=== PATIENT | female | born 1995 | race Caucasian/White ===

== ENCOUNTER 2023-06-11 08:55 | Outpatient (OUT) | payer BC, SELFPAY ==
--- NOTE | 2023-06-11 08:59 | US_ITS ---
[place] [id number] Patient Name: EDMUNDO MÁRQUEZ MRN: [id number] date: 1995 Sex: F Assigned Patient Location: US Current Patient Location: Accession/Order Number: [id number] Exam Date: 06/11/2023 09:00 Report Date: 06/11/2023 10:06 At the request of: LYNN MUHAMMAD Procedure: US OB transvaginal EXAMINATION: US OB transvaginal HISTORY: Amenorrhea N91.2 COMPARISON: No relevant comparison available. FINDINGS: Transvaginal images [place] intrauterine gestation Gestational sac: 2.58 cm, 7 weeks 2 days CRL: 1.18 cm, 7 weeks 3 days Yolk sac: 2.9 mm Heart rate: 163 beats minute Cervix: Closed, 4.1 cm The uterus is normal, anteverted The right ovary is normal measuring 2.7 x 2.3 x 1.3 cm Left ovary measures 5.0 x 4.1 x 4.7 cm. Areas of anechoic echogenicity measuring 3.6 cm likely corpus luteal cyst Clinical age: 7 weeks 5 days Clinical HIRAM: 01/23/2024 Ultrasound age: 7 weeks 3 days Ultrasound HIRAM: 01/25/2024 US/US OB transvaginal IMPRESSION: [place] intrauterine gestation measuring 7 weeks 3 days Electronically authenticated by: GAGAN KENT Date: 06/11/2023 10:06
--- OUTSIDE RECORDS SUMMARY | 2023-06-11 08:59 | XMS_ITS | CCD ---
Author Name Unknown Address [id number] [place] [address] Organization [facility] Care Team Providers Care Material Mover Name Role Phone PATRICIA PATEL Primary Care Unavailable NORMA ., DR MONTAÑO Admitting Unavailable NORMA ., DR MONTAÑO Attending Unavailable MISC, DR SHI Primary Care Unavailable KARASIK ., DR SERVIN Admitting Unavailabl e KARASIK ., DR SERVIN Consulting Unavailabl e KARASIK ., DR SERVIN Attending Unavailabl e MISC, DR SHI Primary Care Unavailable NORMA ., DR MONTAÑO Consulting Unavailable RADHA LOZANO Consulting Unavailable FLORO ., LAYA Consulting Unavailable NORMA ., DR MONTAÑO Procedure Practitioner Unavail able FLORO ., LAYA Attending Unavailable MISC, DR SHI Primary Care Unavailable FLORO ., LAYA Admitting Unavailable FLORO ., LAYA Attending Unavailable MISC, DR SHI Primary Care Unavailable FLORO ., LAYA Admitting Unavailable FLORO ., LAYA Attending Unavailable MISC, DR SHI Primary Care Unavailable FLORO ., LAYA Admitting Unavailable NEGAR CORONADO Attending Unavailable NEGAR CORONADO Attending Unavailable Morris TY, Mariza Anders Unavailable [phone] Sarah Laboy MD Primary Care Provider Negar Coronado NP Unavailable Medications Current Medications Medication Drug Class(es) Dates Sig (Normalized) Sig (Original) levothyroxine sodium 0.025 mg oral tablet (1 source) l-Thyroxine Start: 03-22-2023 End: 03-21-2024 take 1 tablet by mouth before mealtime levothyroxine (Synthroid) 25 MCG tablet Indications: Hypothyroidism (acquired) (CMS/HCC) Take 1 tablet (25 mcg) by mouth in the morning. Take before meals. 30 tablet 1 03/22/2023 03/21/2024 Active sertraline 100 mg oral tablet (1 source) Serotonin Reuptake Inhibitor Start: 04-19-2023 take 1 tablet by mouth in the morning sertraline (Zoloft) 100 MG tablet Indications: Anxiety Take 1 tablet (100 mg) by mouth in the morning. 90 tablet 1 04/19/2023 Active Problems Active Problems Problem Classification Problem Date Documented Da te Episodic/Chronic Anxiety disorders (1 source) Anxiety; Translations: [Anxiety disorder, unspecified] Onset: 03-21-2023 03-21-2023 Chronic Biliary tract disease (1 source) Obstruction of bile duct; Translations: [OBSTRUCTION OF BILE DUCT] Onset: 07-17-2022 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 and vulva (1 source) Second degree perineal laceration during delivery; Translations: [SECOND DEG PERINEAL LAC DUR DELIV] Onset: 07-17-2022 Episodic Other complications of ; puerperium affecting management of mother (1 source) Liver and biliary tract disorders in childbirth; Translations: [LIVER AND JESUS TRACT D/O CHILDBIRTH] Onset: 07-17-2022 Episodic Other complications of (2 sources) Liver and biliary tract disorders in , third trimester; Translations: [LIVER AND JESUS TRACT D/O PREG 3RD TRI] Onset: 07-02-2022 Episodic Other non-traumatic joint disorders (1 source) Pain in left knee; Translations: [Pain in left knee] Onset: 11-04-2021 Episodic Other non-traumatic joint disorders (1 source) Pain in right knee; Translations: [Pain in right knee] Onset: 11-04-2021 Episodic Other and delivery including normal (9 sources) Encounter for care and examination of lactating mother; Translations: [Encounter for routine follow-up] Onset: 07-11-2022 Episodic Residual codes; unclassified (1 source) 36 weeks gestation of ; Translations: [36 WEEKS GESTATION OF ] Onset: 07-17-2022 Episodic Thyroid disorders (2 sources) Acquired hypothyroidism; Translations: [Hypothyroidism, unspecified] Onset: 04-19-2023 05-12-2023 Chronic Past or Other Problems Problem Classification Problem Date Documented Da te Episodic/Chronic Mood disorders (1 source) Mood disorders Onset: 03-21-2023 03-21-2023 Results Test Name Value Interpretation Reference Range Facil ity CBC AUTO DIFFon 07-04-2022 BASO # 0.1 103/ul Normal 0.0-0.1 [facility] Comment on above: Performed By: #### C BC #### [facility] [address] [address] [address] Christie Ahmadi Basophils/100 WBC (Bld) 0.3 % Normal 0.2-2.0 [facility] Comment on above: Performed By: #### C BC #### [facility] [address] [address] [address] Christie Ahmadi EO # 0.0 103/ul Normal 0.0-0.7 [facility] Comment on above: Performed By: #### C BC #### [facility] [address] [place] [address] Dr. Christie Ahmadi Eosinophils/100 WBC (Bld) 0.1 % Critically low 0.9-7.0 [facility] Comment on above: Performed By: #### C BC #### [facility] [address] [address] [address] Christie Ahmadi Erythrocyte distribution width (RBC) [Ratio] 12.9 % Normal 11.0-15.0 [facility] Comment on above: Performed By: #### C BC #### [facility] [address] [place] [address] Dr. Christie Ahmadi Hematocrit (Bld) [Volume fraction] 29.9 % Critically low 36.0-48.0 [facility] Comment on above: Performed By: #### C BC #### [facility] [address] [address] [address] Christie Ahmadi Hemoglobin (Bld) [Mass/Vol] 10.0 g/dL Critically low 12.0-16.0 [facility] Comment on above: Performed By: #### C BC #### [facility] [address] [address] [address] Christie Ahmadi IG # 0.09 10e3/ul Critically high 0.00-0.03 [facility] Comment on above: Performed By: #### C BC #### [facility] [address] [place] [address] Dr. Chrsitie Ahmadi IG % 0.6 % Critically high 0.0-0.5 [facility] Comment on above: Performed By: #### C BC #### [facility] [address] [place] [address] Dr. Christie Ahmadi LYMPH # 1.5 103/ul Normal 1.2-3.8 [facility] Comment on above: Performed By: #### C BC #### [facility] [address] [place] [address] Dr. Christie Ahmadi Lymphocytes/100 WBC (Bld) 10.0 % Critically low 20.5-60.0 [facility] Comment on above: Performed By: #### C BC #### [facility] [address] [place] [address] Dr. Christie Ahmadi MANUAL DIFF REQ NO Normal [facility] Comment on above: Performed By: #### C BC #### [facility] [address] [place] [address] Dr. Christie Ahmadi MCH (RBC) [Entitic mass] 28.9 pg Normal 26.7-34.0 [facility] Comment on above: Performed By: #### C BC #### [facility] [address] [place] [address] Dr. Christie Ahmadi MCHC (RBC) [Mass/Vol] 33.4 g/dL Normal 29.9-35.2 [facility] Comment on above: Performed By: #### C BC #### [facility] [address] [place] [address] Dr. Christie Ahmadi MCV (RBC) [Entitic vol] 86.4 fL Normal 81.0-99.0 [facility] Comment on above: Performed By: #### C BC #### [facility] [address] [place] [address] Dr. Christie Ahmadi MONO # 1.2 103/ul Critically high 0.3-0.8 [facility] Comment on above: Performed By: #### C BC #### [facility] [address] [address] [address] Christie Ahmadi Monocytes/100 WBC (Bld) 8.0 % Normal 1.7-12.0 [facility] Comment on above: Performed By: #### C BC #### [facility] [address] [place] [address] Dr. Christie Ahmadi NEUT # 11.7 103/ul Critically high 1.4-6.[address] [facility] Comment on above: Performed By: #### C BC #### [facility] [address] [place] [address] Dr. Christie Ahmadi Neutrophils/100 WBC (Bld) 81.0 % Critically high 43.0-75.0 [facility] Comment on above: Performed By: #### C BC #### [facility] [address] [place] [address] Dr. Christie Ahmadi Platelet mean volume (Bld) [Entitic vol] 10.0 fL Normal 9.5-13.5 [facility] Comment on above: Performed By: #### C BC #### [facility] [address] [place] [address] Dr. Christie Ahmadi PLT 153 103/ul Normal 150-450 [facility] Comment on above: Performed By: #### C BC #### [facility] [address] [place] [address] Dr. Christie Ahmadi RBC 3.46 106/ul Critically low 4.20-5.40 [facility] Comment on above: Performed By: #### C BC #### [facility] [address] [place] [address] Dr. Christie Ahmadi WBC 14.4 103/ul Critically high 4.0-11.[address] [facility] Comment on above: Performed By: #### C BC #### [facility] [address] [place] [address] Dr. Christie Ahmadi CBC AUTO DIFFon 07-02-2022 BASO # 0.0 103/ul Normal 0.0-0.1 [facility] Comment on above: Performed By: #### C BC #### [facility] [address] [address] [address] Christie Ahmadi Basophils/100 WBC (Bld) 0.4 % Normal 0.2-2.0 [facility] Comment on above: Performed By: #### C BC #### [facility] [address] [place] [address] Dr. Christie Ahmadi EO # 0.0 103/ul Normal 0.0-0.7 [facility] Comment on above: Performed By: #### C BC #### [facility] [address] [place] [address] Dr. Christie Ahmadi Eosinophils/100 WBC (Bld) 0.5 % Critically low 0.9-7.0 [facility] Comment on above: Performed By: #### C BC #### [facility] [address] [place] [address] Dr. Christie Ahmadi Erythrocyte distribution width (RBC) [Ratio] 12.7 % Normal 11.0-15.0 [facility] Comment on above: Performed By: #### C BC #### [facility] [address] [place] [address] Dr. Christie Ahmadi Hematocrit (Bld) [Volume fraction] 32.2 % Critically low 36.0-48.0 [facility] Comment on above: Performed By: #### C BC #### [facility] [address] [place] [address] Dr. Christie Ahmadi Hemoglobin (Bld) [Mass/Vol] 11.2 g/dL Critically low 12.0-16.0 [facility] Comment on above: Performed By: #### C BC #### [facility] [address] [place] [address] Dr. Christie Ahmadi IG # 0.05 10e3/ul Critically high 0.00-0.03 [facility] Comment on above: Performed By: #### C BC #### [facility] [address] [place] [address] Dr. Christie Ahmadi IG % 0.6 % Critically high 0.0-0.5 [facility] Comment on above: Performed By: #### C BC #### [facility] [address] [address] [address] Christie Ahmadi LYMPH # 1.2 103/ul Normal 1.2-3.8 [facility] Comment on above: Performed By: #### C BC #### [facility] [address] [place] [address] Dr. Christie Ahmadi Lymphocytes/100 WBC (Bld) 16.0 % Critically low 20.5-60.0 [facility] Comment on above: Performed By: #### C BC #### [facility] [address] [place] [address] Dr. Christie Ahmadi MANUAL DIFF REQ NO Normal [facility] Comment on above: Performed By: #### C BC #### [facility] [address] [place] [address] Dr. Christie Ahmadi MCH (RBC) [Entitic mass] 29.8 pg Normal 26.7-34.0 [facility] Comment on above: Performed By: #### C BC #### [facility] [address] [place] [address] Dr. Christie Ahmadi MCHC (RBC) [Mass/Vol] 34.8 g/dL Normal 29.9-35.2 [facility] Comment on above: Performed By: #### C BC #### [facility] [address] [place] [address] Dr. Christie Ahmadi MCV (RBC) [Entitic vol] 85.6 fL Normal 81.0-99.0 [facility] Comment on above: Performed By: #### C BC #### [facility] [address] [place] [address] Dr. Christie Ahmadi MONO # 0.6 103/ul Normal 0.3-0.8 [facility] Comment on above: Performed By: #### C BC #### [facility] [address] [place] [address] Dr. Christie Ahmadi Monocytes/100 WBC (Bld) 7.7 % Normal 1.7-12.0 [facility] Comment on above: Performed By: #### C BC #### [facility] [address] [place] [address] Dr. Christie Ahmadi NEUT # 5.8 103/ul Normal 1.4-6.5 [facility] Comment on above: Performed By: #### C BC #### [facility] [address] [place] [address] Dr. Christie Ahmadi Neutrophils/100 WBC (Bld) 74.8 % Normal 43.0-75.0 [facility] Comment on above: Performed By: #### C BC #### [facility] [address] [place] [address] Dr. Christie Ahmadi Platelet mean volume (Bld) [Entitic vol] 10.2 fL Normal 9.5-13.5 [facility] Comment on above: Performed By: #### C BC #### [facility] [address] [place] [address] Dr. Christie Ahmadi PLT 208 103/ul Normal 150-450 [facility] Comment on above: Performed By: #### C BC #### [facility] [address] [place] [address] Dr. Christie Ahmadi RBC 3.76 106/ul Critically low 4.20-5.40 [facility] Comment on above: Performed By: #### C BC #### [facility] [address] [place] [address] Dr. Christie Ahmadi WBC 7.7 103/ul Normal 4.0-11.0 [facility] Comment on above: Performed By: #### C BC #### [facility] [address] [place] [address] Dr. Christie Ahmadi DRUG SCREEN RAPID (URINE)on 07-02-2022 AMP Negative Normal NEGATIVE [facility] Comment on above: Performed By: #### D RUGRPD #### [facility] [address] [place] [address] Dr. Christie Ahmadi BAR Negative Normal NEGATIVE [facility] Comment on above: Performed By: #### D RUGRPD #### [facility] [address] [place] [address] Dr. Christie Ahmadi BUP Negative Normal NEGATIVE [facility] Comment on above: Performed By: #### D RUGRPD #### [facility] [address] [place] [address] Dr. Christie Ahmadi BZO Negative Normal NEGATIVE [facility] Comment on above: Performed By: #### D RUGRPD #### [facility] [address] [place] [address] Dr. Christie Ahmadi GINA Negative Normal NEGATIVE [facility] Comment on above: Performed By: #### D RUGRPD #### [facility] [address] [place] [address] Dr. Christie Ahmadi CUT-OFFS SEE BELOW Normal [facility] Comment on above: Result Comment: AMP (Amphetamine): 500ng/mL, BAR (Barbituates): 200 ng/mL, BZO (Benzodiazepines): 150 ng/mL, BUP (Buprenorphine): 10 ng/mL, GINA (Cocaine): 150 ng/mL, mAMP (Methamphetamine): 500 ng/mL, MTD (Methadone): 200 ng/mL, OPI (Opiates): 100 ng/mL, OXY (Oxycodone): 100 ng/mL, PCP (Phencyclidine): 25 ng/mL, PPX (Propoxyphene): 300 ng/mL, THC (Cannabinoids): 50 ng/mL, TCA (Trycyclic Antidepressants): 300 ng/mL Performed By: #### D RUGRPD #### [facility] [address] [place] [address] Dr. Christie Ahmadi DRUG CUT HEADER DRUG CLASS TEST SYSTEM CUT-OFF CONCENTRATIONS ARE FOLLOWS: Normal [facility] Comment on above: Performed By: #### D RUGRPD #### [facility] [address] [place] [address] Dr. Christie Ahmadi mAMP Negative Normal NEGATIVE [facility] Comment on above: Performed By: #### D RUGRPD #### [facility] [address] [place] [address] Dr. Christie Ahmadi MTD Negative Normal NEGATIVE [facility] Comment on above: Performed By: #### D RUGRPD #### [facility] [address] [place] [address] Dr. Christie Ahmadi OPI Negative Normal NEGATIVE [facility] Comment on above: Performed By: #### D RUGRPD #### [facility] [address] [address] [address] Christie Ahmadi OXY Negative Normal NEGATIVE [facility] Comment on above: Performed By: #### D RUGRPD #### [facility] [address] [place], [place] [address] Dr. Christie Ahmadi PCP Negative Normal NEGATIVE [facility] Comment on above: Performed By: #### D RUGRPD #### [facility] [address] [address] [address] Christie Ahmadi PPX Negative Normal NEGATIVE [facility] Comment on above: Performed By: #### D RUGRPD #### [facility] [address] [address] [address] Christie Ahmadi TCA Negative Normal NEGATIVE [facility] Comment on above: Performed By: #### D RUGRPD #### [facility] [address] [address] [address] Christie Ahmadi THC Negative Normal NEGATIVE [facility] Comment on above: Performed By: #### D RUGRPD #### [facility] [address] [address] [address] Christie Ahmadi TYPE AND SCREENon 07-02-2022 TYPE AND SCREEN Negative Normal [facility] Comment on above: Performed By: #### T NS #### [facility] [address] [address] [address] Christie Ahmadi XR KNEE LEFT (3 VIEWS)on XR KNEE LEFT (3 VIEWS) X-rays taken in clinic today and preliminarily reviewed by me 11/04/21: AP bilateral knees standing, bilateral sunrise view and lateral views of both knees Demonstrate normal anatomic alignment. No evidence of patellofemoral malalignment, lateral patellar tilt or patellar dislocation. No evidence of acute fracture, significant degenerative changes or other acute osseous abnormality. Patient with small suprapatellar joint effusion left knee none on the right. Interpreted by: ALINA Guevara MD Signed by: Nolan Stanton MD 01/11/22 Final result Normal [facility] XR KNEE RIGHT (1-2 VIEWS)on 01-11-2022 XR KNEE RIGHT (1-2 VIEWS) X-rays taken in clinic today and preliminarily reviewed by me 11/04/21: AP bilateral knees standing, bilateral sunrise view and lateral views of both knees Demonstrate normal anatomic alignment. No evidence of patellofemoral malalignment, lateral patellar tilt or patellar dislocation. No evidence of acute fracture, significant degenerative changes or other acute osseous abnormality. Patient with small suprapatellar joint effusion left knee none on the right. Interpreted by: ALINA Guevara MD Signed by: Nolan Stanton MD 01/11/22 Final result Normal [facility] US OB 1ST Trimesteron 2021 US OB 1ST Trimester FINDINGS: A single intrauterine gestational sac is present. No subchorionic hemorrhage. A single pole is present. Normal heart rate at 147 beats per minute. Yolk sac also is seen. Current sonographic age is 7 weeks and 6 days based on the crown-rump length measurement of 1.1 cm. Based on this age, current estimated date of delivery is July 20, 2022. No pelvic fluid or adnexal mass present. IMPRESSION: Findings consistent with a live intrauterine gestation, current sonographic age of 7 weeks and6 days resulting in an estimated date of delivery of July 20, 2022. Report reported and signed by Liang Hill on 12/07/2021 1519 Normal [facility] [employer] Encounters Encounter Date Encounter Type Care Provider Facility Start: 05-12-2023 Refill Negar Castanon P Work Phone: [facility] Comment on above: Hypothyroidism (acqu ired) ([facility]) Start: 04-19-2023 End: 04-19-2023 ambulatory NEGAR CORONADO Not Available Start: 03-21-2023 End: 03-21-2023 ambulatory NEGAR CORONADO Not Available Start: 08-02-2022 End: 08-02-2022 ambulatory LAYA AQUINO . Facility:[facility] Start: 07-25-[address] DANYEL GREEN . Facili ty:[facility] Start: 07-18-2022 End: 08-01-2022 ambulatory LAYA AQUINO . Facility:[facility] Start: 07-11-2022 End: 07-11-2022 ambulatory LAYA AQUINO . Facility:[facility] Start: 07-02-2022 End: 07-05-2022 Evaluation and management of inpatient DR MALATHI RENE . Facility:[facility] Start: 11-04-2021 End: 11-04-2021 ambulatory PATRICIA PATEL [facility] Procedures Date Procedure Procedure Detail Performing Clinician Start: 07-03-2022 Delivery of Products of Conception, External Approach DR DANYEL GREEN . Start: 07-03-2022 Drainage of Amniotic Fluid, Therapeutic from Products of Conception, Via Natural or Artificial Opening DR DANYEL GREEN . Start: 07-03-2022 Repair Perineum Musc le, Open Approach DR DANYEL GREEN . Start: 07-02-2022 Introduction of Horm one into Female Reproductive, Via Natural or Artificial Opening DR DANYEL GREEN . Start: 07-02-2022 Introduction of Othe r Hormone into Peripheral Vein, Percutaneous Approach DR DANYEL GREEN . Plan of Treatment Date Care Activity Detail Author Start: 08-21-2023 End: 08-21-2023 Patient encounter procedure 08/21/2023 9:00 AM EDT Office Visit [facility] [address] [place] [address] Bonnie Aquino, CN [address] [place] [address] [facility] Start: 12-01-2022 Influenza vaccination Influenza Vacc ine (#1) [facility] Immunizations Immunization Date Immunization Notes Care Provider Fa cili 02-10-2021 influenza virus vacc ine, unspecified formulation Negar Coronado NP Work Phone: [facility] Payers Date Payer Category Payer Unknown BCBS BCBS xxxxxx [id number] 2022-Present [phone] [address] [place] [address] [id number] 1997 Unknown [id number] 1997 Unknown [id number] 1997 Unknown [id number] 1997 Unknown [id number] 1997 Unknown [id number] 1997 Unknown [id number] 1997 Unknown [id number] 1997 Unknown [id number] 1959 Unknown [id number] Social History Date Type Detail Facility Start: 03-21-2023 Tobacco smoking status TNIS Never sm oked tobacco [facility] Start: 03-21-2023 Tobacco use and exposure Smoke less tobacco non-user [facility] Start: 04-19-2023 Alcohol intake Ex-drinker (finding) [facility] Start: 03-20-2023 End: 03-21-2023 [facility] of [facility] Start: 03-20-2023 End: 03-21-2023 Humiliation, Afraid, Rape, and Kick questionnaire [HARK] [facility] Within the last year , have you been afraid of your partner or ex-partner? No [facility] How often do you att end meetings of the clubs or organizations you belong to? Patient refused [facility] Are you now , , , , never or living with a partner? [facility] How often to you hav e a drink containing alcohol? Monthly or less [facility] How many standard dr inks containing alcohol do you have on a typical day? 1 or 2 [facility] How often do you hav e 6 or more drinks on 1 occasion? Never [facility] How hard is it for y ou to pay for the very basics like food, housing, medical care, and heating Somewhat hard [facility] Do you feel stress - tense, restless, nervous, or anxious, or unable to sleep at night because your mind is troubled all the time - these days [OSQ] Rather much [facility] (I/We) worried wheth er (my/our) food would run out before (I/we) got money to buy more. Never true [facility] Start: 03-31-2023 Alcohol Comment caffeine 1-2 cups/da y [facility] Start: 1995 Sex Assigned At Not on file [facility] Evaluation note Note Date & Type Note Facility Evaluation note Diagnosis Hypothyroidism (acquired) (CMS/HCC) Unspecified hypothyroidism documented in this encounter [facility] Summary Purpose Family History No Family History Records FoundNo Family History Records FoundNo Family History Records FoundNo Family History Records Found Advance Directives No Advanced Directives Records FoundNo Advanced Directives Records FoundNo Advanced Directives Records FoundNo Advanced Directives Records Found Additional Source Comments INFORMATION SOURCE (unrecogn ized section and content) DATE CREATED AUTHOR 12/08/2021 [facility] dical Specialist DATE CREATED AUTHOR AUTHOR'S ORGANIZ ATION 01/11/2022 [facility] DATE CREATED AUTHOR AUTHOR'S ORGANIZ ATION 08/03/2022 [facility] DATE CREATED AUTHOR AUTHOR'S ORGANIZ ATION 04/20/2023 [facility] dical Specialists EPIC Reason for Visit (unrecogniz ed section and content) Reason Comments Med Refill Care Teams (unrecognized sec tion and content) Material Mover Relationship Specialty Start Date End Date Mariza Caceres NP [address] [place], [place] [id number] [address] PCP - [employer] 10/31/21 Sarah Laboy MD [address] [place], [place] [id number] PCP - General Family Medicine 03/21/23 Negar Coronado NP [address] [place] [address] Nurse Practitioner Family Medicine 03/21/23 FOR RECORDS PERTAINING TO PATIENTS WHO ARE OR HAVE BEEN ENROLLED IN A CHEMICAL DEPENDENCY/SUBSTANCEABUSE PROGRAM, SOME INFORMATION MAY BE OMITTED. This clinical summary was aggregated from multiple sources. Caution should be exercised in using it in the provision of clinical care. This summary normalizes information from multiple sources, and as a consequence, information in this document may materially change the coding, format and clinical context of patient data. In addition, data may be omitted in some cases. CLINICAL DECISIONS SHOULD BE BASED ON THE PRIMARY CLINICAL RECORDS. [facility]. provides no warranty or guarantee of the accuracy or completeness of information in this document.
== END 2023-06-11 08:56 | disposition home or self-care (01) ==
LOC: US 08:55
PROVIDERS: Visit Provider Midwife
DX: N91.2 Amenorrhea, unspecified (principal)
CPT/HCPCS: 76817

== ENCOUNTER 2023-12-11 06:46 | Outpatient (OUT) | payer SELFPAY ==
--- OUTSIDE RECORDS SUMMARY | 2023-12-11 06:48 | XMS_ITS | CCD ---
Author Organization [facility] Care Team Providers Care Imaging Account Manager Name Role Phone PATRICIA PATEL Primary Care Unavailable NORMA ., DR MONTAÑO Admitting Unavailable NORMA ., DR MONTAÑO Attending Unavailable MISC, DR SHI Primary Care Unavailable KARASIK ., DR SERVIN Admitting Unavailabl e KARASIK ., DR SERVIN Consulting Unavailabl e KARASIK ., DR SERVIN Attending Unavailabl e MISC, DR SHI Primary Care Unavailable NORMA ., DR MONTAÑO Consulting Unavailable DAVID LOZANO Consulting Unavailable FLORO ., LAYA Consulting [...] Care Unavailable FLORO ., LAYA Admitting Unavailable [employer] EXTRUSION SUPERVISOR, Mariza Anders Unavailable Benoit YOUNG, Sarah Parks Primary Care Provider [phone] Negar Coronado NP Unavailable SALOO LYNN L Referring Unavailable FLORO, LYNN L Attending Unavailable FLORO, LYNN L Referring Unavailable FLORO, LYNN Diamond Attending Unavailable NEGAR CORONADO Attending Unavailable FLORO, LYNN Lobo Attending Unavailable FLORO, LYNN L Referring Unavailable FLORO, LYNN L Attending Unavailable FLORO, LYNN L Attending Unavailable FLORO, LYNN L Attending Unavailable FLORO, LYNN L Referring Unavailable FLORO, LYNN L Attending Unavailable FLORO, LYNN L Attending Unavailable NEGAR CORONADO Attending Unavailable Medications Current Medications Medication Drug Class(es) [...] Results Test Name Value Interpretation Reference Range Facility US BIOPHYSICAL PROFILE WO NON STRESS TESTINGon 11-30-2023 US BIOPHYSICAL PROFILE WO NON STRESS TESTING TITLE OF EXAM: OB Ultrasound: REASON FOR EXAM: BPP, hypothyroidism. TECHNIQUE: Grayscale imaging is performed. Measurements: heart rate: 129 bpm OWEN: 12.2 cm (8.5-24.3) Biophysical Profile: 11/07 Breathin Tone: Movement: 2 AFV: 2 Cervix Length: 5.1 cm HIRAM: 01/23/2024 CLINICAL SUMMARY: BPP: 11/07 A single intrauterine is noted in cephalic presentation. heart is observed with a heart rate of 129 BPM. motion and organs seen: breathing movements were observed. tone is noted. body and limb movements are observed. Placenta is located anteriorly. Placenta is Grade I/III Amniotic fluid volume is normal. Dictated and transcribed 11/30/23dpd This report has been electronically signed and approved by the interpreting radiologist. Electronically Signed Jalil Kohli M.D. 2023-11-30 17:04:27 Normal Not Available US OB FOLLOW UP TRANSABDOMIN AL APPROACHon 11-14-2023 US OB FOLLOW UP TRANSABDOMINAL APPROACH TITLE OF EXAM: OB Ultrasound: REASON FOR EXAM: Growth TECHNIQUE: Grayscale and color Doppler imaging is performed. Measurements: heart rate: 141 bpm OWEN: 14.2 cm (9.0-23.4) BPD: 7.6 cm HC: 27.6 cm AC: 26.2 cm FL: 5.7 cm GA for sonogram: 29.9 wk (28.1-31.7) Cervix length: 4.8 cm HIRAM: 01/23/2024 Weight Estimate: Weight: 1539 gm / 3 lbs, 6 oz (0797-9864 gm) [place] Normal: 1559 gm (7051-4538 gm) [place]lock Wt%: 46% for 30.0 wks CLINICAL SUMMARY: A single intrauterine is noted in cephalic presentation. heart is observed with a heart rate of 141 bpm. motion and organs seen: body and limb movements are observed. Placenta is located anteriorly. Placenta is Grade I/III Amniotic fluid volume is normal. Dictated and transcribed 11/14/23/dpd This report has been electronically signed and approved by the interpreting radiologist. Electronically Signed David Campbell D.O. 2023-11-14 11:05:46 Normal Not Available US OB 14+ WEEKS ANATOMY SCAN on 09-06-2023 US OB 14+ WEEKS ANATOMY SCAN FINDINGS: A single, live intrauterine is present with normal cardiac rate of 129 beats per minute. Normal activity and amniotic fluid volume. Amniotic fluid index is 14 cm. Morphology is grossly normal. The cervix is long and closed, 5.2 cm. The placenta is anterior, not associated with the cervical os. The current sonographic age is 20 weeks and 0 days, based on the following measurements: BPD 4.6 cm (19 weeks, 6 days) Head Circumference 17.5 cm (20 weeks, 0 days) Abdominal Circumference 15.1 cm (20 weeks, 2 days) Femur Length 3.2 cm (20 weeks, 0 days) Presentation Variable Placenta Anterior Weight (g) by Percentile 43.3 % * These measurements result in an estimated date of delivery of January 24, 2024. The current estimated weight is 333 grams (0 pounds, 12 ounces). IMPRESSION: Single, live intrauterine , current sonographic age of 20 weeks and 0 days, with an estimated date of delivery of January 24, 2024. * Estimated Weight (g) by Percentile is based upon an accurate estimated age based on last menstrual period. TRANSCRIBED BY: ELECTRONICALLY SIGNED BY: Liang Hill MD Normal Not Available CBC AUTO DIFFon 07-04-2022 BASO # 0.1 103/ul Normal 0.0-0.1 [facility] Comment on above: Performed By: #### C BC #### [facility] [address] [address] [address] Christie Ahmadi Basophils/100 WBC (Bld) 0.3 % Normal 0.2-2.0 [facility] Comment on above: Performed By: #### C BC #### [facility] [address] [address] [address] Christie Ahmadi EO # 0.0 103/ul Normal 0.0-0.7 [facility] Comment on above: Performed By: #### C BC #### [facility] [address] [address] [address] Christie Ahmadi Eosinophils/100 WBC (Bld) 0.1 % Critically low 0.9-7.0 [facility] Comment on above: Performed By: #### C BC #### [facility] [address] [place] [address] Dr. Christie Ahmadi Erythrocyte distribution width (RBC) [Ratio] 12.9 % Normal 11.0-15.0 [facility] Comment on above: Performed By: #### C BC #### [facility] [address] [place] [address] Dr. Christie Ahmadi Hematocrit (Bld) [Volume fraction] 29.9 % Critically low 36.0-48.0 [facility] Comment on above: Performed By: #### C BC #### [facility] [address] [place] [address] Dr. Christie Ahmadi Hemoglobin (Bld) [Mass/Vol] 10.0 g/dL Critically low 12.0-16.0 [facility] Comment on above: Performed By: #### C BC #### [facility] [address] [place] [address] Dr. Christie Ahmadi IG # 0.09 10e3/ul Critically high 0.00-0.03 [facility] Comment on above: Performed By: #### C BC #### [facility] [address] [place] [address] Dr. Christie Ahmadi IG % 0.6 % Critically high 0.0-0.5 [facility] Comment on above: Performed By: #### C BC #### [facility] [address] [place] [address] Dr. Christie Ahmadi LYMPH # 1.5 103/ul Normal 1.2-3.8 [facility] Comment on above: Performed By: #### C BC #### [facility] [address] [place] [address] Dr. Christie Ahmadi Lymphocytes/100 WBC (Bld) 10.0 % Critically low 20.5-60.0 [facility] Comment on above: Performed By: #### C BC #### [facility] [address] [place] [address] Dr. Christie Ahmadi MANUAL DIFF REQ NO Normal [facility] Comment on above: Performed By: #### C BC #### [facility] [address] [place] [address] Dr. Christie Ahmadi MCH (RBC) [Entitic mass] 28.9 pg Normal 26.7-34.0 [facility] Comment on above: Performed By: #### C BC #### [facility] [address] [place] [address] Dr. Christie Ahmadi MCHC (RBC) [Mass/Vol] 33.4 g/dL Normal 29.9-35.2 [facility] Comment on above: Performed By: #### C BC #### [facility] [address] [place] [address] Dr. Christie Ahmadi MCV (RBC) [Entitic vol] 86.4 fL Normal 81.0-99.0 [facility] Comment on above: Performed By: #### C BC #### [facility] [address] [place] [address] Dr. Christie Ahmadi MONO # 1.2 103/ul Critically high 0.3-0.8 [facility] Comment on above: Performed By: #### C BC #### [facility] [address] [place] [address] Dr. Christie Ahmadi Monocytes/100 WBC (Bld) 8.0 % Normal 1.7-12.0 [facility] Comment on above: Performed By: #### C BC #### [facility] [address] [place] [address] Dr. Christie Ahmadi NEUT # 11.7 103/ul Critically high 1.4-6.5 [facility] Comment on above: Performed By: #### C BC #### [facility] [address] [address] [address] Christie Ahmadi Neutrophils/100 WBC (Bld) 81.0 % Critically high 43.0-75.0 [facility] Comment on above: Performed By: #### C BC #### [facility] [address] [address] [address] Christie Ahmadi Platelet mean volume (Bld) [Entitic vol] 10.0 fL Normal 9.5-13.5 [facility] Comment on above: Performed By: #### C BC #### [facility] [address] [place] [address] Dr. Christie Ahmadi PLT 153 103/ul Normal 150-450 [facility] Comment on above: Performed By: #### C BC #### [facility] [address] [place] [address] Dr. Christie Ahmadi RBC 3.46 106/ul Critically low 4.20-5.40 [facility] Comment on above: Performed By: #### C BC #### [facility] [address] [place] [address] Dr. Christie Ahmadi WBC 14.4 103/ul Critically high 4.0-11.0 [facility] Comment on above: Performed By: #### C BC #### [facility] [address] [place] [address] Dr. Christie Ahmadi CBC AUTO DIFFon 07-02-2022 BASO # 0.0 103/ul Normal 0.0-0.1 [facility] Comment on above: Performed By: #### C BC #### [facility] [address] [place] [address] Dr. Christie Ahmadi Basophils/100 WBC (Bld) 0.4 % Normal 0.2-2.0 [facility] Comment on above: Performed By: #### C BC #### [facility] [address] [place] [address] Dr. Christie Ahmadi EO # 0.0 103/ul Normal 0.0-0.7 [facility] Comment on above: Performed By: #### C BC #### [facility] [address] [address] [address] Christie Ahmadi Eosinophils/100 WBC (Bld) 0.5 % Critically low 0.9-7.0 [facility] Comment on above: Performed By: #### C BC #### [facility] [address] [place] [address] Dr. Christie Ahmadi Erythrocyte distribution width (RBC) [Ratio] 12.7 % Normal 11.0-15.0 [facility] Comment on above: Performed By: #### C BC #### [facility] [address] [place] [address] Dr. Christie Ahmadi Hematocrit (Bld) [Volume fraction] 32.2 % Critically low 36.0-48.0 [facility] Comment on above: Performed By: #### C BC #### [facility] [address] [place] [address] Dr. Chrisite Ahmadi Hemoglobin (Bld) [Mass/Vol] 11.2 g/dL Critically low 12.0-16.0 [facility] Comment on above: Performed By: #### C BC #### [facility] [address] [place] [address] Dr. Christie Ahmadi IG # 0.05 10e3/ul Critically high 0.00-0.03 [facility] Comment on above: Performed By: #### C BC #### [facility] [address] [place] [address] Dr. Christie Ahmadi IG % 0.6 % Critically high 0.0-0.5 [facility] Comment on above: Performed By: #### C BC #### [facility] [address] [place] [address] Dr. Christie Ahmadi LYMPH # 1.2 103/ul Normal 1.2-3.8 [facility] Comment on above: Performed By: #### C BC #### [facility] [address] [place] [address] Dr. Christie Ahmadi Lymphocytes/100 WBC (Bld) 16.0 % Critically low 20.5-60.0 [facility] Comment on above: Performed By: #### C BC #### [facility] [address] [place] [address] Dr. Christie Ahmadi MANUAL DIFF REQ NO Normal [facility] Comment on above: Performed By: #### C BC #### [facility] [address] [place] [address] Dr. Christie Ahmadi MCH (RBC) [Entitic mass] 29.8 pg Normal 26.7-34.0 [facility] Comment on above: Performed By: #### C BC #### [facility] [address] [place] [address] Dr. Christie Ahmadi MCHC (RBC) [Mass/Vol] 34.8 g/dL Normal 29.9-35.2 [facility] Comment on above: Performed By: #### C BC #### [facility] [address] [place] [address] Dr. Christie Ahmadi MCV (RBC) [Entitic vol] 85.6 fL Normal 81.0-99.0 [facility] Comment on above: Performed By: #### C BC #### [facility] [address] [place] [address] Dr. Christie Ahmadi MONO # 0.6 103/ul Normal 0.3-0.8 [facility] Comment on above: Performed By: #### C BC #### [facility] [address] [place] [address] Dr. Christie Ahmadi Monocytes/100 WBC (Bld) 7.7 % Normal 1.7-12.0 [facility] Comment on above: Performed By: #### C BC #### [facility] [address] [place] [address] Dr. Christie Ahmadi NEUT # 5.8 103/ul Normal 1.4-6.5 [facility] Comment on above: Performed By: #### C BC #### [facility] [address] [place] [address] Dr. Christie Ahmadi Neutrophils/100 WBC (Bld) 74.8 % Normal 43.0-75.0 [facility] Comment on above: Performed By: #### C BC #### [facility] [address] [address] [address] Christie Ahmadi Platelet mean volume (Bld) [Entitic vol] 10.2 fL Normal 9.5-13.5 [facility] Comment on above: Performed By: #### C BC #### [facility] [address] [address] [address] Christie Ahmadi PLT 208 103/ul Normal 150-450 [facility] Comment on above: Performed By: #### C BC #### [facility] [address] [address] [address] Christie Ahmadi RBC 3.76 106/ul Critically low 4.20-5.40 [facility] Comment on above: Performed By: #### C BC #### [facility] [address] [place] [address] Dr. Christie Ahmadi WBC 7.7 103/ul Normal 4.0-11.0 [facility] Comment on above: Performed By: #### C BC #### [facility] [address] [place] [address] Dr. Christie Ahmadi DRUG SCREEN RAPID (URINE)on 07-02-2022 AMP Negative Normal NEGATIVE [facility] Comment on above: Performed By: #### D RUGRPD #### [facility] [address] [place] [address] Dr. Christie Ahmadi BAR Negative Normal NEGATIVE [facility] Comment on above: Performed By: #### D RUGRPD #### [facility] [address] [place] [address] Dr. Christie Ahmadi BUP Negative Normal NEGATIVE [facility] Comment on above: Performed By: #### D RUGRPD #### [facility] [address] [place] [address] Dr. Christie Ahmadi BZO Negative Normal NEGATIVE [facility] Comment on above: Performed By: #### D RUGRPD #### [facility] [address] [place] [address] Dr. Christie Ahmadi GINA Negative Normal NEGATIVE [facility] Comment on above: Performed By: #### D RUGRPD #### [facility] [address] [place] [address] Dr. Christie Ahmadi CUT-OFFS SEE BELOW Normal [facility] Comment on above: Result Comment: AMP [...] ng/mL Performed By: #### D RUGRPD #### [facility] [address] [place] [address] Dr. Christie Ahmadi DRUG CUT HEADER DRUG CLASS TEST SYSTEM CUT-OFF CONCENTRATIONS ARE FOLLOWS: Normal [facility] Comment on above: Performed By: #### D RUGRPD #### [facility] [address] [place] [address] Dr. Christie Ahmadi mAMP Negative Normal NEGATIVE [facility] Comment on above: Performed By: #### D RUGRPD #### [facility] [address] [place] [address] Dr. Christie Ahmadi MTD Negative Normal NEGATIVE [facility] Comment on above: Performed By: #### D RUGRPD #### [facility] [address] [address] [address] Christie Ahmadi OPI Negative Normal NEGATIVE [facility] Comment on above: Performed By: #### D RUGRPD #### [facility] [address] [address] [address] Christie Ahmadi OXY Negative Normal NEGATIVE [facility] Comment on above: Performed By: #### D RUGRPD #### [facility] [address] [place] [address] Dr. Christie Ahmadi PCP Negative Normal NEGATIVE [facility] Comment on above: Performed By: #### D RUGRPD #### [facility] [address] [place], [place] [address] Dr. Christie Ahmadi PPX Negative Normal NEGATIVE [facility] Comment on above: Performed By: #### D RUGRPD #### [facility] [address] [place], [place] [address] Dr. Christie Ahmadi TCA Negative Normal NEGATIVE [facility] Comment on above: Performed By: #### D RUGRPD #### [facility] [id number] Christie Ahmadi THC Negative Normal NEGATIVE [facility] Comment on above: Performed By: #### D RUGRPD #### [facility] [address] [address] [address] Christie Ahmadi TYPE AND SCREENon 07-02-2022 TYPE AND SCREEN Negative Normal [facility] Comment on above: Performed By: #### T NS #### [facility] [address] [address] [address] Christie Ahmadi XR KNEE LEFT (3 [...] Nolan Stanton MD 01/11/22 Final result Normal [facility] XR KNEE RIGHT (1-2 VIEWS)on 01-11-2022 XR [...] Nolan Stanton MD 01/11/22 Final result Normal [facility] US OB 1ST Trimesteron 2021 US OB [...] by Liang Hill on 12/07/2021 1519 Normal [facility] Early Childhood Associate Encounters Encounter Date Encounter Type Care Provider Facility Start: 12-07-2023 ambulatory LYNN L FLORO Not Patricia ilable Start: 12-04-2023 End: 12-04-2023 ambulatory LYNN L FLORO Not Available Start: 11-30-2023 End: 11-30-2023 ambulatory LYNN L FLORO Not Available Start: 11-27-2023 End: 11-27-2023 ambulatory LYNN L FLORO Not Available Start: 11-14-2023 End: 11-14-2023 ambulatory LYNN L FLORO Not Available Start: 11-01-2023 End: 11-01-2023 ambulatory LYNN L FLORO Not Available Start: 10-10-2023 End: 10-10-2023 ambulatory LYNN L FLORO Not Available Start: 09-06-2023 End: 09-06-2023 ambulatory LYNN L FLORO Not Available Start: 08-08-2023 End: 08-08-2023 ambulatory LYNN L FLORO Not Available Start: 07-11-2023 End: 07-11-2023 ambulatory LYNN L FLORO Not Available Start: 06-14-2023 End: 06-14-2023 ambulatory LYNN L FLORO Not Available Start: 05-12-2023 Lyle Ahumada Work Phone: [facility] Comment on above: Hypothyroidism (acqu ired) ([facility]) Start: 04-19-2023 End: 04-19-2023 ambulatory NEGAR Abigail CORONADO Not Available Start: 03-21-2023 End: 03-21-2023 ambulatory NEGAR Abigail CORONADO Not Available Start: 08-02-2022 End: 08-02-2022 ambulatory LAYA AQUINO . Facility:[facility] Start: 07-25-[address] DANYEL GREEN . Facili ty:[facility] Start: 07-18-2022 End: 08-01-2022 ambulatory LAYA SABINA . Facility:[facility] Start: 07-11-2022 End: 07-11-2022 ambulatory LAYA SABINA . Facility:[facility] Start: 07-02-2022 End: 07-05-2022 Evaluation and management of inpatient DR MALATHI RENE . Facility:[facility] Start: 11-04-2021 End: 11-04-2021 ambulatory PATRICIA PATEL [facility] Procedures Date Procedure Procedure Detail Performing Clinician [...] EDT Office Visit [facility] [address] [place] [address] Lynn Aquino CNM [address] [place] [address] [facility] Start: 12-01-2022 Influenza vaccination Influenza Vacc ine (#1) [facility] Immunizations Immunization Date Immunization Notes Care Provider Fa arline 02-10-2021 influenza virus vacc ine, unspecified formulation Negar Coronado EXTRUSION SUPERVISOR Work Phone: [facility] Payers Date Payer Category Payer Unknown [id number] 2023 Unknown [id number] 2022 Unknown BCBS BCBS xxxxxx [id number] 2022-Present [phone] [address] [place] [address] [id number] 1997 Unknown [id number] [id number]5 1997 Unknown [id number] 2.16.840.1.442504.3.579.2.593 1997 Unknown [id number] 2.16.840.1.022223.3.579.2.593 1997 Unknown [id number] 2.16.840.1.564897.3.579.2.593 1997 Unknown [id number] 2.16.840.1.040860.3.579.2.593 1997 Unknown [id number] 2.16.840.1.502429.3.579.2.593 1997 Unknown [id number] 2.16.840.1.394671.3.579.2.1259 1997 Unknown [id number] 2.16.840.1.895589.3.579.2.1259 1997 Unknown [id number] 2.16.840.1.408581.3.579.2.1259 1997 Unknown [id number] 2.16.840.1.168806.3.579.2.1259 1997 Unknown [id number] 2.16.840.1.820918.3.579.2.1258 1997 Unknown [id number] 2.16.840.1.201694.3.579.2.1258 1997 Unknown [id number] 2.16.840.1.374603.3.579.2.1258 1997 Unknown [id number] 2.16.840.1.027916.3.579.2.1258 1997 Unknown [id number] 2.16.840.1.936848.3.579.2.1258 1997 Unknown [id number] 2.16.840.1.486231.3.579.2.1258 1997 Unknown [id number] 2.16.840.1.870744.3.579.2.1258 1997 Unknown [id number] 2.16.840.1.547766.3.579.2.1258 1997 Unknown [id number] 2.16.840.1.649702.3.579.2.1258 1997 Unknown [id number] 2.16.840.1.192341.3.579.2.9 1959 Unknown [id number] Social History Date Type Detail Facility Start: 03-21-2023 Tobacco smoking status WVIS Never sm oked tobacco [facility] Start: [...] [OSQ] Rather much [facility] (I/We) worried [facility] (my/our) food would run out before [...] section and content) DATE CREATED AUTHOR 12/08/2021 [facility] dical Specialist DATE CREATED AUTHOR AUTHOR'S ORGANIZ ATION 01/11/2022 [facility] DATE CREATED AUTHOR AUTHOR'S ORGANIZ ATION 08/03/2022 [facility] DATE CREATED AUTHOR AUTHOR'S ORGANIZ ATION 12/08/2023 [facility] dical Specialists EPIC Reason for Visit (unrecogniz ed section and content) Reason Comments Med Refill Care Teams (unrecognized sec tion and content) Imaging Account Manager Relationship Specialty Start Date End Date Mariza Caceres NP [address] [place] [address] PCP - [place] [employer] 10/31/21 Sarah Laboy MD [address] [place], [place] [id number] PCP - General Family Medicine 03/21/23 Negar Coronado NP [address] [place] [address] Nurse Practitioner Family Medicine 03/21/23 FOR RECORDS [...] BE BASED ON THE PRIMARY CLINICAL RECORDS. [facility] [employer] [facility]. provides no warranty or guarantee of the accuracy or completeness of information in this document.
[2023-12-11 08:07] VITALS: BP 132/84; PULSE 107
== END 2023-12-11 08:44 | disposition home or self-care (01) ==
LOC: FBCO 06:46 → FBC 08:03
PROVIDERS: Visit Provider Midwife
DX: O26.893 Other specified pregnancy related conditions, third trimester (principal)
CPT/HCPCS: 59025

== ENCOUNTER 2023-12-18 08:40 | Outpatient (OUT) | payer OTHER, SELFPAY ==
--- OUTSIDE RECORDS SUMMARY | 2023-12-18 08:59 | XMS_ITS | CCD ---
Author Organization [facility] Care Team Providers Care Event Av Operator Name Role Phone PATRICIA PATLE Primary Care Unavailable NORMA ., DR MONTAÑO [...] Unavailable FLORO ., LAYA Admitting Unavailable [employer] PRECISION ASSEMBLY INSPECTOR, Mariza Anders Unavailable Sarah Laboy MD Primary Care Provider [phone] Negar Coronado NP Unavailable NEGAR CORONADO Attending Unavailable FLORO, LYNN Diamond Attending Unavailable FLORO, LYNN Diamond Attending Unavailable FLORO, LYNN Diamond Attending Unavailable FLORO, LYNN Lobo Referring Unavailable FLORO, LYNN L Attending Unavailable FLORO, LYNN L Attending Unavailable FLORO, LYNN L Attending Unavailable FLORO, LYNN L Referring Unavailable FLORO, LYNN L Attending Unavailable FLORO, LYNN L Referring Unavailable FLORO, LYNN L Attending Unavailable FLORO, LYNN L Referring Unavailable FLORO, LYNN L Referring Unavailable NEGAR CORONADO Attending Unavailable Medications Current [...] Name Value Interpretation Reference Range Facility US OB FOLLOW UP TRANSABDOMIN AL APPROACHon 12-14-2023 US OB FOLLOW UP TRANSABDOMINAL APPROACH EXAM: OB Ultrasound: REASON FOR EXAM: Growth, hypothyroidism. TECHNIQUE: Grayscale and color Doppler imaging is performed. Measurements: heart rate: 134 bpm OWEN: 12.0 cm (8.0 - 24.8) BPD: 8.6 cm HC: 30.5 cm AC: 30.9 cm FL: 6.7 cm GA for sonogram: 34.1 wk (31.6 - 36.5) Cervix length: 5.2 cm HIRAM: 01/23/2024 Weight Estimate: Weight: 2476 gm / 5 lbs, 7 oz (2114 - 2837 gm) Hadlock Normal: 2439 gm (2025 - 2854 gm) Hadlock Wt%: 55% for 34.3 wks Clinical Summary: A single intrauterine is noted in cephalic presentation. heart is observed with a heart rate of 134 bpm. size is normal. growth: Consistent with normal growth. motion and organs seen: body and limb movements are observed. Placenta is located anteriorly. Placenta is Grade I/III Amniotic fluid volume is normal. IMPRESSION: Normal growth. Dictated and transcribed 12/14/2023/tm This report has been electronically signed and approved by the interpreting radiologist. Electronically Signed Conner Freedman II, M.D. 2023-12-14 16:41:32 Normal Not Available US BIOPHYSICAL PROFILE WO NON STRESS TESTINGon 12-07-2023 US BIOPHYSICAL PROFILE WO NON STRESS TESTING EXAM: OB Ultrasound: REASON FOR EXAM: BPP; hypothyroidism. TECHNIQUE: Grayscale imaging with color flow Doppler and spectral analysis performed. Measurements: heart rate: 129 bpm OWEN: 12.3 cm (8.2 - 24.6) Cervix length: 4.3 cm Biophysical Profile: 88 Breathin Tone: 2 Movement: 2 AFV: 2 HIRAM: 01/23/2024 Clinical Summary: A single intrauterine is noted in cephalic presentation. heart is observed with a heart rate of 129 BPM. motion and organs seen: breathing movements were observed. tone is noted. body and limb movements are observed. Placenta is located anteriorly. Placenta is grade I/III. There is no evidence of placenta previa. Amniotic fluid volume is normal. IMPRESSION: Normal Biophysical profile. Dictated and transcribed 12/10/2023/jf This report has been electronically signed and approved by the interpreting radiologist. Electronically Signed Christoph Gonzalez M.D. 2023-12-11 15:47:34 Normal Not Available US BIOPHYSICAL PROFILE WO NON STRESS TESTINGon 11-30-2023 US BIOPHYSICAL PROFILE WO NON STRESS TESTING TITLE OF EXAM: OB Ultrasound: REASON FOR EXAM: BPP, hypothyroidism. TECHNIQUE: Grayscale imaging is performed. Measurements: heart rate: 129 bpm OWEN: 12.2 cm (8.5-24.3) Biophysical Profile: 8 Breathin Tone: Movement: 2 AFV: 2 Cervix [...] fluid volume is normal. Dictated and transcribed 11/30/23/dpd This report has been electronically signed and [...] 1539 gm / 3 lbs, 6 oz (2567-1672 gm) Hadlock Normal: 1559 gm (1965-8046 gm) Hadlock Wt%: 46% for 30.0 wks [...] 07-04-2022 BASO # 0.1 103/ul Normal 0.0-0.1 [facility] Comment on above: Performed By: #### C BC #### [facility] [address] [address] [address] Christie Ahmadi Basophils/100 WBC (Bld) 0.3 % Normal 0.2-2.0 [facility] Comment on above: Performed By: #### C BC #### [facility] [address] [address] [address] Christie Ahmadi EO # 0.0 103/ul Normal 0.0-0.7 [facility] Comment on above: Performed By: #### C BC #### [facility] [address] [address] [address] Christie Ahmadi Eosinophils/100 WBC (Bld) 0.1 % Critically low 0.9-7.0 [facility] Comment on above: Performed By: #### C BC #### [facility] [address] [address] [address] Christie Ahmadi Erythrocyte distribution width (RBC) [Ratio] 12.9 % Normal 11.0-15.0 [facility] Comment on above: Performed By: #### C BC #### [facility] [address] [address] [address] Christie Ahmadi Hematocrit (Bld) [Volume fraction] 29.9 % Critically low 36.0-48.0 [facility] Comment on above: Performed By: #### C BC #### [facility] [address] [address] [address] Christie Ahmadi Hemoglobin (Bld) [Mass/Vol] 10.0 g/dL Critically low 12.0-16.0 [facility] Comment on above: Performed By: #### C BC #### [facility] [address] [address] [address] Christie Ahmadi IG # 0.09 10e3/ul Critically high 0.00-0.03 [facility] Comment on above: Performed By: #### C BC #### [facility] [address] [address] [address] Christie Ahmadi IG % 0.6 % Critically high 0.0-0.5 [facility] Comment on above: Performed By: #### C BC #### [facility] [address] [address] [address] Christie Ahmadi LYMPH # 1.5 103/ul Normal 1.2-3.8 [facility] Comment on above: Performed By: #### C BC #### [facility] [address] [place] [address] Dr. Christie Ahmadi Lymphocytes/100 WBC (Bld) 10.0 % Critically low 20.5-60.0 [facility] Comment on above: Performed By: #### C BC #### [facility] [address] [place] [address] Dr. Christie Ahmadi MANUAL DIFF REQ NO Normal [facility] Comment on above: Performed By: #### C BC #### [facility] [address] [place] [address] Dr. Christie Ahmadi MCH (RBC) [Entitic mass] 28.9 pg Normal 26.7-34.0 [facility] Comment on above: Performed By: #### C BC #### [facility] [address] [place] [address] Dr. Christie Ahmadi MCHC (RBC) [Mass/Vol] 33.4 g/dL Normal 29.9-35.2 [facility] Comment on above: Performed By: #### C BC #### [facility] [address] [place] [address] Dr. Christie Ahmadi MCV (RBC) [Entitic vol] 86.4 fL Normal 81.0-99.0 [facility] Comment on above: Performed By: #### C BC #### [facility] [address] [place] [address] Dr. Christie Ahmadi MONO # 1.2 103/ul Critically high 0.3-0.8 [facility] Comment on above: Performed By: #### C BC #### [facility] [address] [place] [address] Dr. Christie Ahmadi Monocytes/100 WBC (Bld) 8.0 % Normal 1.7-12.0 [facility] Comment on above: Performed By: #### C BC #### [facility] [address] [address] [address] Christie Ahmadi NEUT # 11.7 103/ul Critically high 1.4-6.5 [facility] Comment on above: Performed By: #### C BC #### [facility] [address] [place] [address] Dr. Christie Ahmadi Neutrophils/100 WBC (Bld) 81.0 % Critically high 43.0-75.0 [facility] Comment on above: Performed By: #### C BC #### [facility] [address] [place] [address] Dr. Christie Ahmadi Platelet mean volume (Bld) [Entitic vol] 10.0 fL Normal 9.5-13.5 [facility] Comment on above: Performed By: #### C BC #### [facility] [address] [place] [address] Dr. Christie Ahmadi PLT 153 103/ul Normal 150-450 [facility] Comment on above: Performed By: #### C BC #### [facility] [address] [place] [address] Dr. Christie Ahmadi RBC 3.46 106/ul Critically low 4.20-5.40 [facility] Comment on above: Performed By: #### C BC #### [facility] [address] [place] [address] Dr. Christie Ahmadi WBC 14.4 103/ul Critically high 4.0-11.0 [facility] Comment on above: Performed By: #### C BC #### [facility] [address] [place] [address] Dr. Christie Ahmadi CBC AUTO DIFFon 07-02-2022 BASO # 0.0 103/ul Normal 0.0-0.1 [facility] Comment on above: Performed By: #### C BC #### [facility] [address] [place] [address] Dr. Christie Ahmadi Basophils/100 WBC (Bld) 0.4 % Normal 0.2-2.0 [facility] Comment on above: Performed By: #### C BC #### [facility] [address] [place] [address] Dr. Christie Ahmadi EO # 0.0 103/ul Normal 0.0-0.7 [facility] Comment on above: Performed By: #### C BC #### [facility] [address] [place] [address] Dr. Christie Ahmadi Eosinophils/100 WBC (Bld) 0.5 % Critically low 0.9-7.0 [facility] Comment on above: Performed By: #### C BC #### [facility] [address] [place] [address] Dr. Christie Ahmadi Erythrocyte distribution width (RBC) [Ratio] 12.7 % Normal 11.0-15.0 [facility] Comment on above: Performed By: #### C BC #### [facility] [address] [place] [address] Dr. Christie Ahmadi Hematocrit (Bld) [Volume fraction] 32.2 % Critically low 36.0-48.0 [facility] Comment on above: Performed By: #### C BC #### [facility] [address] [place] [address] Dr. Christie Ahmadi Hemoglobin (Bld) [Mass/Vol] 11.2 g/dL Critically low 12.0-16.0 [facility] Comment on above: Performed By: #### C BC #### [facility] [address] [place] [address] Dr. Christie Ahmadi IG # 0.05 10e3/ul Critically high 0.00-0.03 [facility] Comment on above: Performed By: #### C BC #### [facility] [address] [place] [address] Dr. Christie Ahmadi IG % 0.6 % Critically high 0.0-0.5 [facility] Comment on above: Performed By: #### C BC #### [facility] [address] [place] [address] Dr. Christie Ahmadi LYMPH # 1.2 103/ul Normal 1.2-3.8 [facility] Comment on above: Performed By: #### C BC #### [facility] [address] [place] [address] Dr. Christie Ahmadi Lymphocytes/100 WBC (Bld) 16.0 % Critically low 20.5-60.0 [facility] Comment on above: Performed By: #### C BC #### [facility] [address] [place] [address] Dr. Christie Ahmadi MANUAL DIFF REQ NO Normal [facility] Comment on above: Performed By: #### C BC #### [facility] [address] [place] [address] Dr. Christie Ahmadi MCH (RBC) [Entitic mass] 29.8 pg Normal 26.7-34.0 [facility] Comment on above: Performed By: #### C BC #### [facility] [address] [place] [address] Dr. Christie Ahmadi MCHC (RBC) [Mass/Vol] 34.8 g/dL Normal 29.9-35.2 [facility] Comment on above: Performed By: #### C BC #### [facility] [address] [place] [address] Dr. Christie Ahmadi MCV (RBC) [Entitic vol] 85.6 fL Normal 81.0-99.0 [facility] Comment on above: Performed By: #### C BC #### [facility] [address] [place] [address] Dr. Christie Ahmadi MONO # 0.6 103/ul Normal 0.3-0.8 [facility] Comment on above: Performed By: #### C BC #### [facility] [address] [place] [address] Dr. Christie Ahmadi Monocytes/100 WBC (Bld) 7.7 % Normal 1.7-12.0 [facility] Comment on above: Performed By: #### C BC #### [facility] [address] [place] [address] Dr. Christie Ahmadi NEUT # 5.8 103/ul Normal 1.4-6.5 [facility] Comment on above: Performed By: #### C BC #### [facility] [address] [place] [address] Dr. Christie Ahmadi Neutrophils/100 WBC (Bld) 74.8 % Normal 43.0-75.0 [facility] Comment on above: Performed By: #### C BC #### [facility] [address] [place] [address] Dr. Christie Ahmadi Platelet mean volume (Bld) [Entitic vol] 10.2 fL Normal 9.5-13.5 [facility] Comment on above: Performed By: #### C BC #### [facility] [address] [place] [address] Dr. Christie Ahmadi PLT 208 103/ul Normal 150-450 [facility] Comment on above: Performed By: #### C BC #### [facility] [address] [place] [address] Dr. Christie Ahmadi RBC 3.76 106/ul Critically low 4.20-5.40 [facility] Comment on above: Performed By: #### C BC #### [facility] [address] [place] [address] Dr. Christie Ahmadi WBC 7.7 103/ul Normal 4.0-11.0 [facility] Comment on above: Performed By: #### C BC #### [facility] [address] [place] [address] Dr. Christie Ahmadi DRUG SCREEN RAPID (URINE)on 07-02-2022 AMP Negative Normal NEGATIVE [facility] Comment on above: Performed By: #### D RUGRPD #### [facility] [address] [place] [address] Dr. Christie Ahmadi BAR Negative Normal NEGATIVE [facility] Comment on above: Performed By: #### D RUGRPD #### [facility] [address] [place] [address] Dr. Christie Ahmadi BUP Negative Normal NEGATIVE [facility] Comment on above: Performed By: #### D RUGRPD #### [facility] [address] [place] [address] Dr. Christie Ahmadi BZO Negative Normal NEGATIVE [facility] Comment on above: Performed By: #### D RUGRPD #### [facility] [address] [place] [address] Dr. Christie Ahmadi GINA Negative Normal NEGATIVE [facility] Comment on above: Performed By: #### D RUGRPD #### [facility] [address] [place] [address] Dr. Christie Ahmadi CUT-OFFS SEE BELOW Normal [facility] Comment on above: Result Comment: AMP [...] ng/mL Performed By: #### D RUGRPD #### [facility] [address] [place] [address] Dr. Christie Ahmadi DRUG CUT HEADER DRUG CLASS TEST SYSTEM CUT-OFF CONCENTRATIONS ARE FOLLOWS: Normal [facility] Comment on above: Performed By: #### D RUGRPD #### [facility] [address] [place] [address] Dr. Christie Ahmadi mAMP Negative Normal NEGATIVE [facility] Comment on above: Performed By: #### D RUGRPD #### [facility] [address] [place] [address] Dr. Christie Ahmadi MTD Negative Normal NEGATIVE [facility] Comment on above: Performed By: #### D RUGRPD #### [facility] [address] [place] [address] Dr. Christie Ahmadi OPI Negative Normal NEGATIVE [facility] Comment on above: Performed By: #### D RUGRPD #### [facility] [address] [place] [address] Dr. Christie Ahmadi OXY Negative Normal NEGATIVE [facility] Comment on above: Performed By: #### D RUGRPD #### [facility] [address] [address] [address] Christie Ahmadi PCP Negative Normal NEGATIVE [facility] Comment on above: Performed By: #### D RUGRPD #### [facility] [address] [address] [address] Christie Ahmadi PPX Negative Normal NEGATIVE [facility] Comment on above: Performed By: #### D RUGRPD #### [facility] [address] [address] [address] Christie Ahmadi TCA Negative Normal NEGATIVE [facility] Comment on above: Performed By: #### D RUGRPD #### [facility] [address] [address] [address] Christie Ahmadi THC Negative Normal NEGATIVE [facility] Comment on above: Performed By: #### D RUGRPD #### [facility] [address] [address] [address] Christie Ahmadi TYPE AND SCREENon 07-02-2022 TYPE AND SCREEN Negative Normal [facility] Comment on above: Performed By: #### T NS #### [facility] [address] [address] [address] Christie Ahmadi XR KNEE LEFT (3 [...] Nolan Stanton MD 01/11/22 Final result Normal [facility] XR KNEE RIGHT (1-2 VIEWS)on 01-11-2022 [...] Nolan Stanton MD 01/11/22 Final result Normal [facility] US OB 1ST Trimesteron 2021 US [...] by Liang Hill on 12/07/2021 1519 Normal [facility] Gang Bore Operator Encounters Encounter Date Encounter Type Care Provider Facility Start: 12-14-2023 ambulatory LYNN L FLORO Not Patricia ilable Start: 12-07-2023 End: 12-07-2023 ambulatory LYNN L FLORO Not Available Start: 12-04-2023 End: 12-04-2023 ambulatory LYNN L [...] Available Start: 08-08-2023 End: 08-08-2023 ambulatory LYNN Lobo FLORO Not Available Start: 07-11-2023 End: 07-11-2023 ambulatory LYNN L FLORO Not Available Start: 06-14-2023 End: 06-14-2023 ambulatory LYNN L FLORO Not Available Start: 05-12-2023 Refill Negar Coronado N P Work Phone: [facility] Comment on above: Hypothyroidism (acqu ired) ([facility]) Start: 04-19-2023 End: 04-19-2023 ambulatory NEGAR CORONADO Not Available Start: 03-21-2023 End: 03-21-2023 ambulatory NEGAR CORONADO Not Available Start: 08-02-2022 End: 08-02-2022 ambulatory LAYA FLORO . Facility:[facility] Start: 07-25-[address] DANYEL GREEN . Facili ty:[facility] Start: 07-18-2022 End: 08-01-2022 ambulatory LAYA FLORO . Facility:[facility] Start: 07-11-2022 End: 07-11-2022 ambulatory LAYA FLORO . Facility:[facility] Start: 07-02-2022 End: 07-05-2022 Evaluation and management of inpatient DR MALATHI RENE . Facility:[facility] Start: 11-04-2021 End: 11-04-2021 ambulatory PATRICIA PATEL [facility] Procedures Date Procedure Procedure Detail Performing [...] Hormone into Peripheral Vein, Percutaneous Approach DR DNAYEL GREEN . Plan of Treatment Date Care Activity Detail Author Start: 08-21-2023 End: 08-21-2023 Patient encounter procedure 08/21/2023 9:00 AM EDT Office Visit [facility] [address] [place] [id number] Lynn Aquino, CNM [address] [place] [address] [facility] Start: 12-01-2022 Influenza vaccination Influenza Vacc ine (#1) [facility] Immunizations Immunization Date Immunization Notes Care Provider Fa cility 02-10-2021 influenza virus vacc ine, unspecified formulation Negar Coronado PRECISION ASSEMBLY INSPECTOR Work Phone: [facility] Payers Date Payer Category Payer Unknown [id number] 2023 Unknown [id number] 2022 Unknown BCBS BCBS xxxxxx [id number] 2022-Present [phone] [address] [place] [address] [id number] 1997 Unknown [id number] 2.16.840.1.615675.3.579.2.175 1997 Unknown [id number] 2.16.840.1.945953.3.579.2.593 1997 Unknown [id number] 2.16.840.1.992087.3.579.2.593 1997 Unknown [id number] 2.16.840.1.621092.3.579.2.593 1997 Unknown [id number] 2.16.840.1.755111.3.579.2.593 1997 Unknown [id number] 2.16.840.1.075919.3.579.2.593 1997 Unknown [id number] 2.16.840.1.466982.3.579.2.1259 1997 Unknown [id number] 2.16.840.1.174558.3.579.2.1259 1997 Unknown [id number] 2.16.840.1.387062.3.579.2.1258 1997 Unknown [id number] 2.16.840.1.077088.3.579.2.1258 1997 Unknown [id number] 2.16.840.1.615153.3.579.2.1258 1997 Unknown [id number] 2.16.840.1.062340.3.579.2.1258 1997 Unknown [id number] 2.16.840.1.754365.3.579.2.1258 1997 Unknown [id number] 2.16.840.1.840725.3.579.2.1258 1997 Unknown [id number] 2.16.840.1.292882.3.579.2.1258 1997 Unknown [id number] 2.16.840.1.379745.3.579.2.1258 1997 Unknown [id number] 2.16.840.1.960440.3.579.2.1258 1997 Unknown [id number] 2.16.840.1.138003.3.579.2.1258 1997 Unknown [id number] 2.16.840.1.328339.3.579.2.1258 1997 Unknown [id number] 2.16.840.1.732434.3.579.2.1258 1997 Unknown [id number] 2.16.840.1.949505.3.579.2.9 1959 Unknown [id number] Social History Date Type Detail Facility Start: 03-21-2023 Tobacco smoking status ARIS Never sm oked tobacco [facility] Start: 03-21-2023 Tobacco use and exposure Smoke less tobacco non-user [facility] Start: 04-19-2023 Alcohol intake Ex-drinker (finding) [facility] Start: 03-20-2023 End: 03-21-2023 History of [...] section and content) DATE CREATED AUTHOR 12/08/2021 [facility] dical Specialist DATE CREATED AUTHOR AUTHOR'S ORGANIZ ATION 01/11/2022 [facility] DATE CREATED AUTHOR AUTHOR'S ORGANIZ ATION 08/03/2022 [facility] DATE CREATED AUTHOR AUTHOR'S ORGANIZ ATION 12/16/2023 [facility] dical Specialists EPIC Reason for Visit (unrecogniz ed section and content) Reason Comments Med Refill Care Teams (unrecognized sec tion and content) Event Av Operator Relationship Specialty Start Date End Date Mariza Caceres NP [address] [facility] [place] [address] PCP - [facility] 10/31/21 Sarah Laboy MD [address], [place] [id number] PCP - General Family Medicine 03/21/23 Negar Coronado NP [address] [place] [address] Nurse Practitioner Family Medicine 03/21/23 [...] BE BASED ON THE PRIMARY CLINICAL RECORDS. [employer] [facility]. provides no warranty or guarantee of the accuracy or completeness of information in this document.
[2023-12-18 09:10] VITALS: BP 112/71; PULSE 101
== END 2023-12-18 09:45 | disposition home or self-care (01) ==
LOC: FBCO 08:44 → FBC 09:04
PROVIDERS: Visit Provider Midwife
DX: O99.283 Endocrine, nutritional and metabolic diseases complicating pregnancy, third trimester (principal); Z3A.34 34 weeks gestation of pregnancy
CPT/HCPCS: 59025

== ENCOUNTER 2023-12-31 19:03 | Inpatient (IN) | payer OTHER, SELFPAY ==
[2023-12-31] VITALS (9 sets, daily range): BP systolic 97–133; BP diastolic 52–81; PULSE 100–110; TEMP 36.5
--- OUTSIDE RECORDS SUMMARY | 2023-12-31 19:10 | XMS_ITS | CCD ---
Author Organization [facility] Care Team Providers Care Server Manager Name Role Phone PATRICIA PATEL Primary [...] Care Unavailable FLORO ., LAYA Admitting Unavailable Morris [employer] MANAGER, Mariza Anders Unavailable Benoit YOUNG, Sarah Parks Primary Care Provider [phone] Negar Coronado NP Unavailable FLORO, LYNN Referring Unavailable NO PCP, NO PCP Primary Care Unavailable SHEELA PRO Attending Unavailable FLORO, LYNN Referring Unavailable NO PCP, NO PCP Primary Care Unavailable NEGAR CORONADO Attending Unavailable FLORO, LYNN L Attending Unavailable FLORO, LYNN L Attending Unavailable FLORO, LYNN L Attending Unavailable FLORO, LYNN L Referring Unavailable FLORO, LYNN L Attending Unavailable FLORO, LYNN L Attending Unavailable FLORO, LYNN L Attending Unavailable FLORO, LYNN L Referring Unavailable FLORO, LYNN L Attending Unavailable FLORO, LYNN L Referring Unavailable FLORO, LYNN L Attending Unavailable LYNN AQUINO Referring Unavailable LYNN AQUINO Referring Unavailable NEGAR CORONADO Attending Unavailable LYNN AQUINO Referring Unavailable LYNN AQUINO Attending Unavailable LYNN AQUINO Attending Unavailable LYNN AQUINO Referring Unavailable Medications Current Medications Medication Drug Class(es) [...] Onset: 03-21-2023 03-21-2023 Chronic Biliary tract disease (2 sources) Obstruction of bile duct; 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] Onset: 07-17-2022 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 [...] PREG 3RD TRI] Onset: 07-02-2022 Episodic Other complications of (1 source) Supervision of high risk , unspecified, unspecified trimester; Translations: [Supervision of high risk , unspecified, unspecified trimester] Onset: 12-18-2023 Episodic Other complications of (1 source) Endocrine, nutritional and metabolic diseases complicating , unspecified trimester; Translations: [Endocrine, nutritional and metabolic diseases complicating , unspecified trimester] Onset: 12-18-2023 Episodic Other gastrointestinal disorders (1 source) Personal history of other diseases of the digestive system; Translations: [Personal history of other diseases of the digestive system] Onset: 12-18-2023 Episodic Other non-traumatic joint disorders (1 source) Pain in left knee; Translations: [Pain in left knee] Onset: 11-04-2021 Episodic Other non-traumatic joint disorders (1 source) Pain in right knee; Translations: [Pain in right knee] Onset: 11-04-2021 Episodic Other and delivery including normal (9 sources) Encounter for care and examination of lactating mother; Translations: [Encounter for routine follow-up] Onset: 07-11-2022 Episodic Other screening for suspected conditions (not mental disorders or infectious disease) (1 source) Encounter for other specified screening; Translations: [Encounter for other specified screening] Onset: 12-18-2023 Episodic Residual codes; unclassified (1 source) 36 weeks gestation of ; Translations: [36 WEEKS GESTATION OF ] Onset: 07-17-2022 Episodic Residual codes; unclassified (1 source) Personal history of other complications of , childbirth and the puerperium; Translations: [Personal history of other complications of , childbirth and the puerperium] Onset: 12-18-2023 Episodic Residual codes; unclassified (1 source) 34 weeks gestation of ; Translations: [34 weeks gestation of ] Onset: 12-18-2023 Episodic Thyroid disorders (3 sources) Acquired hypothyroidism; Translations: [Hypothyroidism, unspecified] Onset: 04-19-2023 05-12-2023 Chronic Unclassified (1 source) Intrahepatic cholestasis of , third trimester; Translations: [Intrahepatic cholestasis of , third trimester] Onset: 12-18-2023 Past or Other Problems Problem Classification Problem Date Documented Da te Episodic/Chronic Mood disorders (1 source) Mood disorders Onset: 03-21-2023 03-21-2023 Results Test Name Value Interpretation Reference Range Facility US BIOPHYSICAL PROFILE WO NON STRESS TESTINGon 12-28-2023 US BIOPHYSICAL PROFILE WO NON STRESS TESTING TITLE OF EXAM: OB Ultrasound: REASON FOR EXAM: Hypothyroidism. Reference Exam: 12/21/2023 TECHNIQUE: Grayscale imaging is performed. Measurements: heart rate: 141 bpm OWEN: 12.1 cm (7.6-24.8) Biophysical Profile: 8/8 Breathin Tone: 2 Movement: 2 AFV: 2 Cervix Length: 5.3 cm HIRAM: 01/23/2024 CLINICAL SUMMARY: BPP: 11/07 A single intrauterine is noted in cephalic presentation. heart is observed with a heart rate of 141 BPM motion and organs seen: breathing movements were observed. tone is noted. body and limb movements are observed. Placenta is located anteriorly. Placenta is Grade II/III Amniotic fluid volume is normal. Dictated and transcribed 12/28/23/dpd This report has been electronically signed and approved by the interpreting radiologist. Electronically Signed Josr Callahan M.D. 2023-12-28 15:15:15 Normal Not Available US BIOPHYSICAL PROFILE WO NON STRESS TESTINGon 12-21-2023 US BIOPHYSICAL PROFILE WO NON STRESS TESTING EXAM: OB Ultrasound: REASON FOR EXAM: BPP, hypothyroidism. TECHNIQUE: Grayscale and color Doppler imaging is performed. Measurements: heart rate: 147 bpm OWEN: 11.0 cm (7.8 - 24.9) Cervix length: 5.7 cm HIRAM: 01/23/2024 Biophysical Profile: 88 Breathing 2, Tone 2, Movement 2, AFV 2 Clinical Summary: A single intrauterine is noted in cephalic presentation. heart is observed with a heart rate of 147. motion and organs seen: tone is noted. body and limb movements are observed. breathing movements were observed. Placenta is located anteriorly. Placenta is Grade II/III. Limited study. Full anatomical survey not performed. Dictated and transcribed 12/21/2023/tm This report has been electronically signed and approved by the interpreting radiologist. Electronically Signed Jalil Kohli M.D. 2023-12-21 17:01:40 Normal Not Available US OB FOLLOW UP [...] normal. IMPRESSION: Normal growth. Dictated and transcribed 12/14/2023/rachel This report has been electronically signed and [...] 24.6) Cervix length: 4.3 cm Biophysical Profile: 11/07 Breathin Tone: 2 Movement: 2 AFV: 2 [...] IMPRESSION: Normal Biophysical profile. Dictated and transcribed 12/10/2023/genesis This report has been electronically signed and [...] 1539 gm / 3 lbs, 6 oz (6228-0385 gm) [place] Normal: 1559 gm (0641-0731 gm) [place] Wt%: 46% for 30.0 wks CLINICAL SUMMARY: A single intrauterine is noted in cephalic presentation. heart is observed with a heart rate of 141 bpm. motion and organs seen: body and limb movements are observed. Placenta is located anteriorly. Placenta is Grade I/III Amniotic fluid volume is normal. Dictated and transcribed 11/14/23dpd This report has been electronically signed and [...] BASO # 0.1 103/ul Normal 0.0-0.1 [facility] Comment on above: Performed By: #### C BC #### [facility] [address] [place] [address] Dr. Christie Ahmadi Basophils/100 WBC (Bld) 0.3 % Normal 0.2-2.0 [facility] Comment on above: Performed By: #### C BC #### [facility] [address] [place] [address] Dr. Christie Ahmadi EO # 0.0 103/ul Normal 0.0-0.7 [facility] Comment on above: Performed By: #### C BC #### [facility] [address] [place] [address] Dr. Christie Ahmadi Eosinophils/100 WBC (Bld) 0.1 % Critically low 0.9-7.0 [facility] Comment on above: Performed By: #### C BC #### [facility] [address] [place] [address] Dr. Christie Ahmadi Erythrocyte distribution width (RBC) [Ratio] 12.9 % Normal 11.0-15.0 [facility] Comment on above: Performed By: #### C BC #### [facility] [address] [place] [address] Dr. Christie Ahmadi Hematocrit (Bld) [Volume fraction] 29.9 % Critically low 36.0-48.0 [facility] Comment on above: Performed By: #### C BC #### [facility] [address] [place] [address] Dr. Christie Ahmadi Hemoglobin (Bld) [Mass/Vol] 10.0 g/dL Critically low 12.0-16.0 [facility] Comment on above: Performed By: #### C BC #### [facility] [address] [place] [address] Dr. Christie Ahmadi IG # 0.09 10e3/ul Critically high 0.00-0.03 [facility] Comment on above: Performed By: #### C BC #### [facility] [address] [place] [address] Dr. Christie Ahmadi IG % 0.6 % Critically high 0.0-0.5 [facility] Comment on above: Performed By: #### C BC #### [facility] [address] [place] [address] Dr. Christie Ahmadi LYMPH # 1.5 103/ul Normal 1.2-3.8 [facility] Comment on above: Performed By: #### C BC #### [facility] [address] [place] [address] Dr. Christie Ahmadi Lymphocytes/100 WBC (Bld) 10.0 % Critically low 20.5-60.0 [facility] Comment on above: Performed By: #### C BC #### [facility] [address] [address] [address] Christie Ahmadi MANUAL DIFF REQ NO Normal [facility] Comment on above: Performed By: #### C BC #### [facility] [address] [place] [address] Dr. Christie Ahmadi MCH (RBC) [Entitic mass] 28.9 pg Normal 26.7-34.0 [facility] Comment on above: Performed By: #### C BC #### [facility] [address] [place] [address] Dr. Christie Ahmadi MCHC (RBC) [Mass/Vol] 33.4 g/dL Normal 29.9-35.2 [facility] Comment on above: Performed By: #### C BC #### [facility] [address] [place] [address] Dr. Christie Ahmadi MCV (RBC) [Entitic vol] 86.4 fL Normal 81.0-99.0 [facility] Comment on above: Performed By: #### C BC #### [facility] [address] [place] [address] Dr. Christie Ahmadi MONO # 1.2 103/ul Critically high 0.3-0.8 [facility] Comment on above: Performed By: #### C BC #### [facility] [address] [place] [address] Dr. Christie Ahmadi Monocytes/100 WBC (Bld) 8.0 % Normal 1.7-12.0 [facility] Comment on above: Performed By: #### C BC #### [facility] [address] [place] [address] Dr. Christie Ahmadi NEUT # 11.7 103/ul Critically high 1.4-6.5 [facility] Comment on above: Performed By: #### C BC #### [facility] [address] [place] [address] Dr. Christie Ahmadi Neutrophils/100 WBC (Bld) 81.0 % Critically high 43.0-75.0 [facility] Comment on above: Performed By: #### C BC #### [facility] [address] [place] [address] Dr. Christie Ahmadi Platelet mean volume (Bld) [Entitic vol] 10.0 fL Normal 9.5-13.5 [facility] Comment on above: Performed By: #### C BC #### [facility] [address] [place] [address] Dr. Christie Ahmadi PLT 153 103/ul Normal 150-450 [facility] Comment on above: Performed By: #### C BC #### [facility] [address] [place] [address] Dr. Christie Ahmadi RBC 3.46 106/ul Critically low 4.20-5.40 [facility] Comment on above: Performed By: #### C BC #### [facility] [address] [place] [address] Dr. Christie Ahmadi WBC 14.4 103/ul Critically high 4.0-11.0 [facility] Comment on above: Performed By: #### C BC #### [facility] [address] [place] [address] Dr. Christie Ahmadi CBC AUTO DIFFon 07-02-2022 BASO # 0.0 103/ul Normal 0.0-0.1 [facility] Comment on above: Performed By: #### C BC #### [facility] [address] [place] [address] Dr. Christie Ahmadi Basophils/100 WBC (Bld) 0.4 % Normal 0.2-2.0 [facility] Comment on above: Performed By: #### C BC #### [facility] [address] [place] [address] Dr. Christie Ahmadi EO # 0.0 103/ul Normal 0.0-0.7 [facility] Comment on above: Performed By: #### C BC #### [facility] [address] [place] [address] Dr. Christie Ahmadi Eosinophils/100 WBC (Bld) 0.5 % Critically low 0.9-7.0 [facility] Comment on above: Performed By: #### C BC #### [facility] [address] [place] [address] Dr. Christie Ahmadi Erythrocyte distribution width (RBC) [Ratio] 12.7 % Normal 11.0-15.0 [facility] Comment on above: Performed By: #### C BC #### [facility] [address] [place] [address] Dr. Christie Ahmadi Hematocrit (Bld) [Volume fraction] 32.2 % Critically low 36.0-48.0 [facility] Comment on above: Performed By: #### C BC #### [facility] [address] [place] [address] Dr. Christie Ahmadi Hemoglobin (Bld) [Mass/Vol] 11.2 g/dL Critically low 12.0-16.0 [facility] Comment on above: Performed By: #### C BC #### [facility] [address] [place] [address] Dr. Christie Ahmadi IG # 0.05 10e3/ul Critically high 0.00-0.03 [facility] Comment on above: Performed By: #### C BC #### [facility] [address] [place] [address] Dr. Christie Ahmadi IG % 0.6 % Critically high 0.0-0.5 [facility] Comment on above: Performed By: #### C BC #### [facility] [address] [place] [address] Dr. Christie Ahmadi LYMPH # 1.2 103/ul Normal 1.2-3.8 [facility] Comment on above: Performed By: #### C BC #### [facility] [address] [place] [address] Dr. Christie Ahmadi Lymphocytes/100 WBC (Bld) 16.0 % Critically low 20.5-60.0 [facility] Comment on above: Performed By: #### C BC #### [facility] [address] [place] [address] Dr. Christie Ahmadi MANUAL DIFF REQ NO Normal [facility] Comment on above: Performed By: #### C BC #### [facility] [address] [place] [address] Dr. Christie Ahmadi MCH (RBC) [Entitic mass] 29.8 pg Normal 26.7-34.0 [facility] Comment on above: Performed By: #### C BC #### [facility] [address] [place] [address] Dr. Christie Ahmadi MCHC (RBC) [Mass/Vol] 34.8 g/dL Normal 29.9-35.2 [facility] Comment on above: Performed By: #### C BC #### [facility] [address] [place] [address] Dr. Christie Ahmadi MCV (RBC) [Entitic vol] 85.6 fL Normal 81.0-99.0 [facility] Comment on above: Performed By: #### C BC #### [facility] [address] [place] [address] Dr. Christie Ahmadi MONO # 0.6 103/ul Normal 0.3-0.8 [facility] Comment on above: Performed By: #### C BC #### [facility] [address] [place] [address] Dr. Christie Ahmadi Monocytes/100 WBC (Bld) 7.7 % Normal 1.7-12.0 [facility] Comment on above: Performed By: #### C BC #### [facility] [address] [place] [address] Dr. Christie Ahmadi NEUT # 5.8 103/ul Normal 1.4-6.5 [facility] Comment on above: Performed By: #### C BC #### [facility] [address] [place] [address] Dr. Christie Ahmadi Neutrophils/100 WBC (Bld) 74.8 % Normal 43.0-75.0 [facility] Comment on above: Performed By: #### C BC #### [facility] [address] [place] [address] Dr. Christie Ahmadi Platelet mean volume (Bld) [Entitic vol] 10.2 fL Normal 9.5-13.5 [facility] Comment on above: Performed By: #### C BC #### [facility] [address] [place] [address] Dr. Christie Ahmadi PLT 208 103/ul Normal 150-450 [facility] Comment on above: Performed By: #### C BC #### [facility] [address] [address] [address] Christie Ahmadi RBC 3.76 106/ul Critically low 4.20-5.40 [facility] Comment on above: Performed By: #### C BC #### [facility] [address] [address] [address] Christie Ahmadi WBC 7.7 103/ul Normal 4.0-11.0 [facility] Comment on above: Performed By: #### C BC #### [facility] [address] [address] [address] Christie Ahmadi DRUG SCREEN RAPID (URINE)on 07-02-2022 AMP Negative Normal NEGATIVE [facility] Comment on above: Performed By: #### D RUGRPD #### [facility] [address] [place] [address] Dr. Christie Ahmadi BAR Negative Normal NEGATIVE [facility] Comment on above: Performed By: #### D RUGRPD #### [facility] [address] [address] [address] Christie Ahmadi BUP Negative Normal NEGATIVE [facility] Comment on above: Performed By: #### D RUGRPD #### [facility] [address] [place] [address] Dr. Christie Ahmadi BZO Negative Normal NEGATIVE [facility] Comment on above: Performed By: #### D RUGRPD #### [facility] [address] [address] [address] Christie Ahmadi GINA Negative Normal NEGATIVE [facility] Comment on above: Performed By: #### D RUGRPD #### [facility] [address] [place] [address] Dr. Christie Ahmadi CUT-OFFS SEE BELOW Normal [facility] Comment on above: Result Comment: AMP [...] ng/mL Performed By: #### D RUGRPD #### [facility] [address] [place] [address] Dr. Christie Ahmadi DRUG CUT HEADER DRUG CLASS TEST SYSTEM CUT-OFF CONCENTRATIONS ARE FOLLOWS: Normal [facility] Comment on above: Performed By: #### D RUGRPD #### [facility] [address] [place] [address] Dr. Christie Ahmadi mAMP Negative Normal NEGATIVE [facility] Comment on above: Performed By: #### D RUGRPD #### [facility] [address] [place] [address] Dr. Christie Ahmadi MTD Negative Normal NEGATIVE [facility] Comment on above: Performed By: #### D RUGRPD #### [facility] [address] [place] [address] Dr. Christie Ahmadi OPI Negative Normal NEGATIVE [facility] Comment on above: Performed By: #### D RUGRPD #### [facility] [address] [place] [address] Dr. Christie Ahmadi OXY Negative Normal NEGATIVE [facility] Comment on above: Performed By: #### D RUGRPD #### [facility] [address] [place] [address] Dr. Christie Ahmadi PCP Negative Normal NEGATIVE [facility] Comment on above: Performed By: #### D RUGRPD #### [facility] [address] [place] [address] Dr. Christie Ahmadi PPX Negative Normal NEGATIVE [facility] Comment on above: Performed By: #### D RUGRPD #### [facility] [address] [place] [address] Dr. Christie Ahmadi TCA Negative Normal NEGATIVE [facility] Comment on above: Performed By: #### D RUGRPD #### [facility] [address] [place], [place] [address] Dr. Christie Ahmadi THC Negative Normal NEGATIVE [facility] Comment on above: Performed By: #### D RUGRPD #### [facility] [address] [place], [place] [address] Dr. Christie Ahmadi TYPE AND SCREENon 07-02-2022 TYPE AND SCREEN Negative Normal [facility] Comment on above: Performed By: #### T NS #### [facility] [address] [place], [place] [address] Dr. Christie Ahmadi XR KNEE LEFT (3 [...] Nolan Stanton MD 01/11/22 Final result Normal [facility] XR KNEE RIGHT (1-2 VIEWS)on [...] Nolan Stanton MD 01/11/22 Final result Normal [facility] US OB 1ST Trimesteron 2021 [...] by Liang Hill on 12/07/2021 1519 Normal [facility] Leather Carver Encounters Encounter Date Encounter Type Care Provider Facility Start: 12-28-2023 ambulatory LYNN L FLORO Not Patricia ilable Start: 12-27-2023 End: 12-27-2023 ambulatory LYNN L FLORO Not Available Start: 12-25-2023 End: 12-25-2023 ambulatory LYNN L FLORO Not Available Start: 12-21-2023 End: 12-21-2023 ambulatory LYNN L FLORO Not Available Start: 12-18-2023 End: 12-18-2023 ambulatory LYNN FLORO [facility] Start: 12-14-2023 End: 12-14-2023 ambulatory LYNN L FLORO Not Available Start: 12-07-2023 End: 12-07-2023 ambulatory LYNN L [...] Available Start: 07-11-2023 End: 07-11-2023 ambulatory LYNN LEONGO Not Available Start: 06-14-2023 End: 06-14-2023 ambulatory LYNN LEONGO Not Available Start: 05-12-2023 Refill Negar Hayes Mauro Lg P Work Phone: [facility] Comment on above: Hypothyroidism (acqu ired) ([facility]) Start: 04-19-2023 End: 04-19-2023 ambulatory NEGAR CORONADO Not Available Start: 03-21-2023 End: 03-21-2023 ambulatory NEGAR CORONADO Not Available Start: 08-02-2022 End: 08-02-2022 ambulatory LAYA FLORO . Facility:[facility] Start: 07-25-[address] DANYEL GREEN . Facili ty:[facility] Start: 07-18-2022 End: 08-01-2022 ambulatory LAYA LEONGO . Facility:[facility] Start: 07-11-2022 End: 07-11-2022 ambulatory LAYA FLORO . Facility:[facility] Start: 07-02-2022 End: 07-05-2022 Evaluation and management of inpatient DR MALATHI RENE . Facility:[facility] Start: 11-04-2021 End: 11-04-2021 ambulatory GOMEZ HASHIM [facility] Procedures Date Procedure Procedure Detail [...] EDT Office Visit [facility] [address] [place] [address] Lynn Aquino, CNM [address] [place] [address] [facility] Start: 12-01-2022 Influenza vaccination Influenza Vacc ine (#1) [facility] Immunizations Immunization Date Immunization Notes Care Provider Fa cility 02-10-2021 influenza virus vacc ine, unspecified formulation Negar Coronado [employer] Work Phone: [facility] Payers Date Payer Category Payer Unknown [id number] 2023 Medicaid [id number] 2022 Unknown BCBS BCBS xxxxxx [id number] 2022-Present [phone] [address] [place] [address] [id number] 1997 Unknown [id number] 2.16.840.1.619047.3.579.2.175 1997 Unknown [id number] 2.16.840.1.855151.3.579.2.593 1997 Unknown [id number] 2.16.840.1.074467.3.579.2.593 1997 Unknown [id number] 2.16.840.1.206256.3.579.2.593 1997 Unknown [id number] 2.16.840.1.421275.3.579.2.593 1997 Unknown [id number] 2.16.840.1.624307.3.579.2.593 1997 Unknown [id number] 2.16.840.1.533622.3.579.2.1286 1997 Unknown [id number] 2.16.840.1.428109.3.579.2.1286 1997 Unknown [id number] 2.16.840.1.049630.3.579.2.1258 1997 Unknown [id number] 2.16.840.1.175866.3.579.2.1258 1997 Unknown [id number] 2.16.840.1.905759.3.579.2.1258 1997 Unknown [id number] 2.16.840.1.296923.3.579.2.1258 1997 Unknown [id number] 2.16840.1.395742.3.579.2.1258 1997 Unknown [id number] 2.16840.1.370828.3.579.2.1258 1997 Unknown [id number] 2.16840.1.069680.3.579.2.1258 1997 Unknown [id number] 2.840.1.093869.3.579.2.1258 1997 Unknown [id number] 2.840.1.549145.3.579.2.1258 1997 Unknown [id number] 2.16840.1.177318.3.579.2.1258 1997 Unknown [id number] 2.16840.1.201789.3.579.2.1258 1997 Unknown [id number] 2.16840.1.278773.3.579.2.1258 1997 Unknown [id number] 2.16840.1.181068.3.579.2.1258 1997 Unknown [id number] 2.16840.1.620715.3.579.2.1258 1997 Unknown [id number] 2.16840.1.620632.3.579.2.1258 1997 Unknown [id number] 2.16.840.1.987835.3.579.2.1258 1997 Unknown [id number] 2.16840.1.218910.3.579.2.1259 1997 Unknown [id number] 2.16.840.1.499832.3.579.2.1259 1997 Unknown [id number] 2.16.840.1.685166.3.579.2.1259 1959 Unknown [id number] Social History Date Type Detail Facility Start: 03-21-2023 Tobacco smoking status NHIS Never sm oked tobacco [facility] Start: [...] [OSQ] Rather much [facility] (I/We) worried whemegan er (my/our) food would run out before [...] section and content) DATE CREATED AUTHOR 12/08/2021 [facility] dical Specialist DATE CREATED AUTHOR AUTHOR'S ORGANIZ ATION 01/11/2022 [place] DATE CREATED AUTHOR AUTHOR'S ORGANIZ ATION 08/03/2022 [facility] [place] [facility] DATE CREATED AUTHOR AUTHOR'S ORGANIZ ATION 12/20/2023 [facility] DATE CREATED AUTHOR AUTHOR'S ORGANIZ ATION [facility]23 [facility] [facility] dical Specialists EPIC Reason for Visit (unrecogniz ed section and content) Reason Comments Med Refill Care Teams (unrecognized sec tion and content) Server Manager Relationship Specialty Start Date End Date Mariza Caceres NP [address] [place] [id number] PCP - [facility] 10/31/21 Sarah Laboy MD [address] [place] [address] PCP - General Family Medicine 03/21/23 Negar Coronado NP [address] [place] [address] Nurse Practitioner Family Medicine 03/21/23 FOR RECORDS [...] BE BASED ON THE PRIMARY CLINICAL RECORDS. [email or web address]. provides no warranty or guarantee of the accuracy or completeness of information in this document.
[2023-12-31] MEDS: LACTATED RINGER'S SOLUTION 1,000 ML 125 ML IV (19:50)
[2023-12-31 20:01] LABS: Hematocrit 32.2 % (36.0-48.0); Mean Corpuscular HGB Conc 34.2 g/dL (29.9-35.2); Mean Corpuscular Hemoglobin 29.9 pg (26.7-34.0); Mean Corpuscular Volume 87.5 fL (81.0-99.0); Mean Platelet Volume 9.7 fL (9.5-13.5); Platelet Count 158 10^3/uL (150-450); Red Blood Count 3.68 10^6/uL (4.20-5.40); Red Cell Distribution Width 16.5 % (11.0-15.0); White Blood Count 7.8 10^3/uL (4.0-11.0)
[2023-12-31 20:13] LABS: Amphetamine Screen Urine NEGATIVE (NEGATIVE); Barbiturates Screen Urine NEGATIVE (NEGATIVE); Benzodiazepines Screen Urine NEGATIVE (NEGATIVE); Buprenorphine Screen Urine NEGATIVE (NEGATIVE); Cannabinoid Screen Urine NEGATIVE (NEGATIVE); Cocaine Screen Urine NEGATIVE (NEGATIVE); Methadone Screen Urine NEGATIVE (NEGATIVE); Methamphetamines Screen Urine NEGATIVE (NEGATIVE); Opiate Screen Urine NEGATIVE (NEGATIVE); Oxycodone Screen Urine NEGATIVE (NEGATIVE); Phencyclidine Screen Urine NEGATIVE (NEGATIVE); Tricyclic Antidepressant Urine NEGATIVE (NEGATIVE)
[2023-12-31] MEDS: DINOPROSTONE 10 MG VAG INSERT.ER VAGINAL (20:39)
[2023-12-31] MEDS: ZOLPIDEM TARTRATE 5 MG TABLET PO (20:58)
[2024-01-01] VITALS (19 sets, daily range): BP systolic 109–145; BP diastolic 56–81; PULSE 83–134; TEMP 36.3–36.7
[2024-01-01] MEDS: LACTATED RINGER'S SOLUTION 1,000 ML 125 ML IV ×2 (00:10→09:03)
--- OUTSIDE RECORDS SUMMARY | 2024-01-01 06:05 | XMS_ITS | CCD ---
Author Organization [facility] Care Team Providers Care Outside Parts Sales Name Role Phone PATRICIA PATEL Primary Care [...] Unavailable FLORO ., LAYA Admitting Unavailable Morris SOFTWARE ENGINEER BACKEND, Mariza Anders Unavailable [phone] Benoit YOUNG, Sarah Parks Primary Care Provider [phone] Negar Coronado NP Unavailable FLORO, LYNN Referring [...] IMPRESSION: Normal Biophysical profile. Dictated and transcribed 12/10/2023/egnesis This report has been electronically signed and [...] 1539 gm / 3 lbs, 6 oz (2020-8851 gm) [place] Normal: 1559 gm (7510-0500 gm) [place] Wt%: 46% for 30.0 wks [...] BASO # 0.1 103/ul Normal 0.0-0.1 [facility] Comment on above: Performed By: #### C BC #### [facility] [address] [place] [address] Dr. Christie Ahmadi Basophils/100 WBC (Bld) 0.3 % Normal 0.2-2.0 [facility] Comment on above: Performed By: #### C BC #### [facility] [address] [place] [address] Dr. Christie Ahmadi EO # 0.0 103/ul Normal 0.0-0.7 [facility] Comment on above: Performed By: #### C BC #### [facility] [address] [place] [address] Dr. Christie Ahmadi Eosinophils/100 WBC (Bld) 0.1 % Critically low 0.9-7.0 [facility] Comment on above: Performed By: #### C BC #### [facility] [address] [place] [address] Dr. Christie Ahmadi Erythrocyte distribution width (RBC) [Ratio] 12.9 % Normal 11.0-15.0 [facility] Comment on above: Performed By: #### C BC #### [facility] [address] [place] [address] Dr. Christie Ahmadi Hematocrit (Bld) [Volume fraction] 29.9 % Critically low 36.0-48.0 [facility] Comment on above: Performed By: #### C BC #### [facility] [address] [place] [address] Dr. Christie Ahmadi Hemoglobin (Bld) [Mass/Vol] 10.0 g/dL Critically low 12.0-16.0 [facility] Comment on above: Performed By: #### C BC #### [facility] [address] [place] [address] Dr. Christie Ahmadi IG # 0.09 10e3/ul Critically high 0.00-0.[address] [facility] Comment on above: Performed By: #### C BC #### [facility] [address] [place] [address] Dr. Christie Ahmadi IG % 0.6 % Critically high 0.0-0.5 [facility] Comment on above: Performed By: #### C BC #### [facility] [address] [place] [address] Dr. Christie Ahmadi LYMPH # 1.5 103/ul Normal 1.2-3.8 [facility] Comment on above: Performed By: #### C BC #### [facility] [address] [place] [address] Dr. Christie Ahmadi Lymphocytes/100 WBC (Bld) 10.0 % Critically low 20.5-60.0 [facility] Comment on above: Performed By: #### C BC #### [facility] [address] [address] [address] Christie Ahmadi MANUAL DIFF REQ NO Normal [facility] Comment on above: Performed By: #### C BC #### [facility] [address] [place] [address] Dr. Christie Ahmadi MCH (RBC) [Entitic mass] 28.9 pg Normal 26.7-34.0 [facility] Comment on above: Performed By: #### C BC #### [facility] [address] [place] [address] Dr. Christie Ahmadi MCHC (RBC) [Mass/Vol] 33.4 g/dL Normal 29.9-35.2 [facility] Comment on above: Performed By: #### C BC #### [facility] [address] [place] [address] Dr. Christie Ahmadi MCV (RBC) [Entitic vol] 86.4 fL Normal 81.0-99.0 [facility] Comment on above: Performed By: #### C BC #### [facility] [address] [place] [address] Dr. Christie Ahmadi MONO # 1.2 103/ul Critically high 0.3-0.8 [facility] Comment on above: Performed By: #### C BC #### [facility] [address] [place] [address] Dr. Christie Ahmadi Monocytes/100 WBC (Bld) 8.0 % Normal 1.7-12.0 [facility] Comment on above: Performed By: #### C BC #### [facility] [address] [place] [address] Dr. Christie Ahmadi NEUT # 11.7 103/ul Critically high 1.4-6.5 [facility] Comment on above: Performed By: #### C BC #### [facility] [address] [place] [address] Dr. Christie Ahmadi Neutrophils/100 WBC (Bld) 81.0 % Critically high 43.0-75.0 [facility] Comment on above: Performed By: #### C BC #### [facility] [address] [place] [address] Dr. Christie Ahmadi Platelet mean volume (Bld) [Entitic vol] 10.0 fL Normal 9.5-13.5 [facility] Comment on above: Performed By: #### C BC #### [facility] [address] [place] [address] Dr. Christie Ahmadi PLT 153 103/ul Normal 150-450 [facility] Comment on above: Performed By: #### C BC #### [facility] [address] [place] [address] Dr. Christie Ahmadi RBC 3.46 106/ul Critically low 4.20-5.40 [facility] Comment on above: Performed By: #### C BC #### [facility] [address] [place] [address] Dr. Christie Ahmadi WBC 14.4 103/ul Critically high 4.0-11.0 [facility] Comment on above: Performed By: #### C BC #### [facility] [address] [place] [address] Dr. Christie Ahmadi CBC AUTO DIFFon 07-02-2022 BASO # 0.0 103/ul Normal 0.0-0.1 [facility] Comment on above: Performed By: #### C BC #### [facility] [address] [place] [address] Dr. Christie Ahmadi Basophils/100 WBC (Bld) 0.4 % Normal 0.2-2.0 [facility] Comment on above: Performed By: #### C BC #### [facility] [address] [place] [address] Dr. Christie Ahmadi EO # 0.0 103/ul Normal 0.0-0.7 [facility] Comment on above: Performed By: #### C BC #### [facility] [address] [place] [address] Dr. Christie Ahmadi Eosinophils/100 WBC (Bld) 0.5 % Critically low 0.9-7.0 [facility] Comment on above: Performed By: #### C BC #### [facility] [address] [place] [address] Dr. Christie Ahmadi Erythrocyte distribution width (RBC) [Ratio] 12.7 % Normal 11.0-15.0 [facility] Comment on above: Performed By: #### C BC #### [facility] [address] [place] [address] Dr. Christie Ahmadi Hematocrit (Bld) [Volume fraction] 32.2 % Critically low 36.0-48.0 [facility] Comment on above: Performed By: #### C BC #### [facility] [address] [place] [address] Dr. Christie Ahmadi Hemoglobin (Bld) [Mass/Vol] 11.2 g/dL Critically low 12.0-16.0 [facility] Comment on above: Performed By: #### C BC #### [facility] [address] [place] [address] Dr. Christie Ahmadi IG # 0.05 10e3/ul Critically high 0.00-0.[address] [facility] Comment on above: Performed By: #### C BC #### [facility] [address] [place] [address] Dr. Christie Ahmadi IG % 0.6 % Critically high 0.0-0.5 [facility] Comment on above: Performed By: #### C BC #### [facility] [address] [place] [address] Dr. Christie Ahmadi LYMPH # 1.2 103/ul Normal 1.2-3.8 [facility] Comment on above: Performed By: #### C BC #### [facility] [address] [place] [address] Dr. Christie Ahmadi Lymphocytes/100 WBC (Bld) 16.0 % Critically low 20.5-60.0 [facility] Comment on above: Performed By: #### C BC #### [facility] [address] [place] [address] Dr. Christie Ahmadi MANUAL DIFF REQ NO Normal [facility] Comment on above: Performed By: #### C BC #### [facility] [address] [place] [address] Dr. Christie Ahmadi MCH (RBC) [Entitic mass] 29.8 pg Normal 26.7-34.0 [facility] Comment on above: Performed By: #### C BC #### [facility] [address] [place] [address] Dr. Christie Ahmadi MCHC (RBC) [Mass/Vol] 34.8 g/dL Normal 29.9-35.2 [facility] Comment on above: Performed By: #### C BC #### [facility] [address] [place] [address] Dr. Christie Ahmadi MCV (RBC) [Entitic vol] 85.6 fL Normal 81.0-99.0 [facility] Comment on above: Performed By: #### C BC #### [facility] [address] [place] [address] Dr. Christie Ahmadi MONO # 0.6 103/ul Normal 0.3-0.8 [facility] Comment on above: Performed By: #### C BC #### [facility] [address] [place] [address] Dr. Christie Ahmadi Monocytes/100 WBC (Bld) 7.7 % Normal 1.7-12.0 [facility] Comment on above: Performed By: #### C BC #### [facility] [address] [place] [address] Dr. Christie Ahmadi NEUT # 5.8 103/ul Normal 1.4-6.5 [facility] Comment on above: Performed By: #### C BC #### [facility] [address] [place] [address] Dr. Christie Ahmadi Neutrophils/100 WBC (Bld) 74.8 % Normal 43.0-75.0 [facility] Comment on above: Performed By: #### C BC #### [facility] [address] [place] [address] Dr. Christie Ahmadi Platelet mean volume (Bld) [Entitic vol] 10.2 fL Normal 9.5-13.5 [facility] Comment on above: Performed By: #### C BC #### [facility] [address] [place] [address] Dr. Christie Ahmadi PLT 208 103/ul Normal 150-450 [facility] Comment on above: Performed By: #### C BC #### [facility] [address] [address] [address] Christie Ahmadi RBC 3.76 106/ul Critically low 4.20-5.40 [facility] Comment on above: Performed By: #### C BC #### [facility] [address] [address] [address] Christie Ahmadi WBC 7.7 103/ul Normal 4.0-11.0 [facility] Comment on above: Performed By: #### C BC #### [facility] [address] [address] [address] Christie Ahmadi DRUG SCREEN RAPID (URINE)on 07-02-2022 AMP Negative Normal NEGATIVE [facility] Comment on above: Performed By: #### D RUGRPD #### [facility] [address] [place] [address] Dr. Christie Ahmadi BAR Negative Normal NEGATIVE [facility] Comment on above: Performed By: #### D RUGRPD #### [facility] [address] [address] [address] Christie Ahmadi BUP Negative Normal NEGATIVE [facility] Comment on above: Performed By: #### D RUGRPD #### [facility] [address] [place] [address] Dr. Christie Ahmadi BZO Negative Normal NEGATIVE [facility] Comment on above: Performed By: #### D RUGRPD #### [facility] [address] [address] [address] Christie Ahmadi GINA Negative Normal NEGATIVE [facility] Comment on above: Performed By: #### D RUGRPD #### [facility] [address] [place] [address] Dr. Christie Ahmadi CUT-OFFS SEE BELOW Normal [facility] Comment on above: Result Comment: AMP [...] ng/mL Performed By: #### D RUGRPD #### [facility] [address] [place] [address] Dr. Christie Ahmadi DRUG CUT HEADER DRUG CLASS TEST SYSTEM CUT-OFF CONCENTRATIONS ARE FOLLOWS: Normal [facility] Comment on above: Performed By: #### D RUGRPD #### [facility] [address] [place] [address] Dr. Christie Ahmadi mAMP Negative Normal NEGATIVE [facility] Comment on above: Performed By: #### D RUGRPD #### [facility] [address] [place] [address] Dr. Christie Ahmadi MTD Negative Normal NEGATIVE [facility] Comment on above: Performed By: #### D RUGRPD #### [facility] [address] [place] [address] Dr. Christie Ahmadi OPI Negative Normal NEGATIVE [facility] Comment on above: Performed By: #### D RUGRPD #### [facility] [address] [place] [address] Dr. Christie Ahmadi OXY Negative Normal NEGATIVE [facility] Comment on above: Performed By: #### D RUGRPD #### [facility] [address] [place] [address] Dr. Christie Ahmadi PCP Negative Normal NEGATIVE [facility] Comment on above: Performed By: #### D RUGRPD #### [facility] [address] [place] [address] Dr. Christie Ahmadi PPX Negative Normal NEGATIVE [facility] Comment on above: Performed By: #### D RUGRPD #### [facility] [address] [place] [address] Dr. Christie Ahmadi TCA Negative Normal NEGATIVE [facility] Comment on above: Performed By: #### D RUGRPD #### [facility] [address] [place], [place] [address] Dr. Christie Ahmadi THC Negative Normal NEGATIVE [facility] Comment on above: Performed By: #### D RUGRPD #### [facility] [address] [place], [place] [address] Dr. Christie Ahmadi TYPE AND SCREENon 07-02-2022 TYPE AND SCREEN Negative Normal [facility] Comment on above: Performed By: #### T NS #### [facility] [address] [place], [place] [address] Dr. Christie Ahmadi XR KNEE LEFT (3 [...] Nolan Stanton MD 01/11/22 Final result Normal [facility] XR KNEE RIGHT (1-2 VIEWS)on 01-11-2022 [...] Nolan Stanton MD 01/11/22 Final result Normal [facility] US OB 1ST Trimesteron 2021 US [...] by Liang Hill on 12/07/2021 1519 Normal [facility] Prosthodontist/Owner Encounters Encounter Date Encounter Type Care Provider Facility Start: 12-28-2023 ambulatory LYNN L FLORO Not Patricia ilable Start: 12-27-2023 End: 12-27-2023 ambulatory LYNN L FLORO Not Available Start: 12-25-2023 End: 12-25-2023 ambulatory LYNN L FLORO Not Available Start: 12-21-2023 End: 12-21-2023 ambulatory LYNN L FLORO Not Available Start: 12-18-2023 End: 12-18-2023 ambulatory LYNN FLORO [facility] Start: 12-14-2023 End: 12-14-2023 ambulatory LYNN [...] FM Comment on above: Hypothyroidism (acqu ired) ([facility] Start: 04-19-2023 End: 04-19-2023 ambulatory NEGAR CORONADO [...] Start: 11-04-2021 End: 11-04-2021 ambulatory GOMEZ HASHIM [facility] Procedures Date Procedure Procedure Detail Performing [...] EDT Office Visit [facility] [address] [place] [address] Lynn Aquino, CNM [address] [place] [address] [facility] Start: 12-01-2022 Influenza vaccination Influenza Vacc ine (#1) [facility] Immunizations Immunization Date Immunization Notes Care Provider Fa cility 02-10-2021 influenza virus vacc ine, unspecified formulation Negar Coronado SOFTWARE ENGINEER BACKEND Work Phone: [facility] Payers Date Payer Category Payer Unknown [id number] 2023 Medicaid [id number] 2022 Unknown BCBS BCBS xxxxxx [id number] 2022-Present [phone] [address] [place] [address] [id number] 1997 Unknown [id number] 2.16.840.1.978862.3.579.2.175 1997 Unknown [id number] 2.16.840.1.802692.3.579.2.593 1997 Unknown [id number] 2.16.840.1.273387.3.579.2.593 1997 Unknown [id number] 2.16.840.1.769878.3.579.2.593 1997 Unknown [id number] 2.16.840.1.596887.3.579.2.593 1997 Unknown [id number] 2.16.840.1.298882.3.579.2.593 1997 Unknown [id number] 2.16.840.1.269682.3.579.2.1286 1997 Unknown [id number] 2.16.840.1.518394.3.579.2.1286 1997 Unknown [id number] 2.16.840.1.874573.3.579.2.1258 1997 Unknown [id number] 2.16.840.1.159773.3.579.2.1258 1997 Unknown [id number] 2.16.840.1.783076.3.579.2.1258 1997 Unknown [id number] 2.16.840.1.444699.3.579.2.1258 1997 Unknown [id number] 2.16840.1.489169.3.579.2.1258 1997 Unknown [id number] 2.16840.1.857857.3.579.2.1258 1997 Unknown [id number] 2.16840.1.676357.3.579.2.1258 1997 Unknown [id number] 2.840.1.365383.3.579.2.1258 1997 Unknown [id number] 2.840.1.749005.3.579.2.1258 1997 Unknown [id number] 2.16840.1.354924.3.579.2.1258 1997 Unknown [id number] 2.16840.1.118631.3.579.2.1258 1997 Unknown [id number] 2.16840.1.462452.3.579.2.1258 1997 Unknown [id number] 2.16840.1.901265.3.579.2.1258 1997 Unknown [id number] 2.16840.1.904167.3.579.2.1258 1997 Unknown [id number] 2.16840.1.140228.3.579.2.1258 1997 Unknown [id number] 2.16.840.1.016133.3.579.2.1258 1997 Unknown [id number] 2.16840.1.610654.3.579.2.1259 1997 Unknown [id number] 2.16.840.1.208320.3.579.2.1259 1997 Unknown [id number] 2.16.840.1.049249.3.579.2.1259 1959 Unknown [id number] Social History Date Type Detail Facility Start: [...] section and content) DATE CREATED AUTHOR 12/08/2021 [facility] dical Specialist DATE CREATED AUTHOR AUTHOR'S ORGANIZ ATION 01/11/2022 [facility] DATE CREATED AUTHOR AUTHOR'S ORGANIZ ATION 08/03/2022 [facility] DATE CREATED AUTHOR AUTHOR'S ORGANIZ ATION 12/20/2023 [facility] DATE CREATED AUTHOR AUTHOR'S ORGANIZ ATION 12/31/2023 [facility] dical Specialists EPIC Reason for Visit (unrecogniz ed section and content) Reason Comments Med Refill Care Teams (unrecognized sec tion and content) Outside Parts Sales Relationship Specialty Start Date End Date Mariza Caceres NP [address] [place] [id number] PCP - [facility] 10/31/21 Sarah Laboy MD [address] [place] [address] PCP - General Family Medicine 03/21/23 Negar Coronado NP [address] [place] [address] Nurse Practitioner Family Medicine 03/21/23 FOR RECORDS [...] BE BASED ON THE PRIMARY CLINICAL RECORDS. [facility]. provides no warranty or guarantee of the accuracy or completeness of information in this document.
[2024-01-01] MEDS: NALBUPHINE HCL 10 MG/ML AMPULE IV (07:08)
--- NOTE | 2024-01-01 08:28 | PM.EN ---
Event Note Event Note: to room to assess patient and patient is /-3. attempted AROM with sterile amnihook. I did not feel a bag of fluid and small amount of discharge noted, I will return at noon to reassess cervix. Patient received Nubain and does desire to take a nap at this time.
[2024-01-01] MEDS: NALBUPHINE HCL 10 MG/ML AMPULE 20 MG IM (12:41)
[2024-01-01] MEDS: LIDOCAINE HCL 1% 200 MG/20 ML MDV INJ (13:58)
[2024-01-01] MEDS: OXYTOCIN/0.9 % SODIUM CHLORIDE 20 UNITS/1,000 ML PLAST..BAG 125 UNIT IV (14:02)
--- NOTE | 2024-01-01 14:45 | PM.OBPN ---
OB - PN: Subj Subjective Patient comments: no complaints Exam Constitutional Vital Signs, click to edit/add: Last Vital Signs Temp 97.7 F 12/31/23 20:55 Pulse 101 H 01/01/24 14:37 BP 120/66 01/01/24 14:37 Results Labs Labs: Short CBC 12/31/23 Range/Units 19:44 WBC 7.8 (4.0-11.0) 10^3/uL Hgb 11.0 L (12.0-16.0) g/dL Hct 32.2 L (36.0-48.0) % Plt Count 158 (150-450) 10^3/uL OB - PN: A/P Time Spent with Patient Time: Total time spent is greater than 50% in coordination of care (as documented) at patient's floor/unit and/or counseling patient: Total time spent with greater than 50% in coordination of care (as documented) at patient's floor/unit and/or counseling patient: less than 15 minutes
--- NOTE | 2024-01-01 14:46 | PM.OBPRCVD ---
Procedure Procedure: - Induction due to cholestasis Induction method: per misoprostol protocol Delivery augmentation: rupture of membranes Delivery monitor: external FHT and external uterine Route of delivery: Episiotomy Description: none L&D Laceration Description: perineal - 2nd degree Estimated blood loss (mL): 150 Anesthesia type: None Disposition: no change Infant Delivery date: 01/01/24 Gender: male presentation: vertex Placental delivery description: Spontaneous cord description: 3 Vessels and Nuchal Cord cord description comment: nuchal cord x1 loose, reduced with delivery heart rate - 1 minute: 100 bpm or Greater respiratory effort - 1 minute: Spontaneous/Strong Cry muscle tone - 1 minute: Active Movement reflex response - 1 minute: Prompt Response color - 1 minute: Bluish Hands or Feet total score - 1 minute: 9 heart rate - 5 minute: 100 bpm or Greater respiratory effort - 5 minute: Spontaneous/Strong Cry muscle tone - 5 minute: Active Movement reflex response - 5 minute: Prompt Response color - 5 minute: Bluish Hands or Feet total score - 5 minute: 9
[2024-01-01] MEDS: KETOROLAC TROMETHAMINE 30 MG/ML VIAL IVP (14:48)
[2024-01-01] MEDS: IBUPROFEN 400 MG TABLET 800 MG PO (20:03)
[2024-01-02 00:16] VITALS: BP 130/74; PULSE 96
[2024-01-02 00:20] VITALS: BP 130/74; PULSE 96; TEMP 37
[2024-01-02] MEDS: IBUPROFEN 400 MG TABLET 800 MG PO ×2 (04:52→13:00)
--- NOTE | 2024-01-02 05:45 | P.OBPN_ITS ---
OB - PN: Subj Subjective Patient comments: no complaints and pain well controlled [place] status: doing well Exam Constitutional Vital Signs, click to edit/add: Last Vital Signs Temp 98.6 F 01/02/24 00:20 Pulse 96 H 01/02/24 00:20 Resp 20 01/02/24 00:20 BP 130/74 01/02/24 00:20 O2 Del Method Room Air 01/02/24 00:20 Documenting provider has reviewed patient's vital signs: yes Common normals: no apparent distress Respiratory Common normals: normal respiratory effort and clear to auscultation bilaterally Cardio Common normals: regular rate and regular rhythm GI Common normals: Normal to inspection, nondistended, normoactive bowel sounds present Extremity Common normals: no clubbing, cyanosis or edema OB - PN: A/P Plan - Vaginal Delivery day: 1 Plan: routine care Time Spent with Patient Time: Total time spent is greater than 50% in coordination of care (as documented) at patient's floor/unit and/or counseling patient: Total time spent with greater than 50% in coordination of care (as documented) at patient's floor/unit and/or counseling patient: less than 15 minutes
[2024-01-02] MEDS: DOCUSATE SODIUM 100 MG CAPSULE PO (08:37)
[2024-01-02 08:39] VITALS: BP 107/65; PULSE 90; TEMP 36.8
[2024-01-02 18:15] VITALS: BP 153/94; PULSE 89
== END 2024-01-02 16:00 | disposition home or self-care (01) | DRG 805 ==
PROVIDERS: Admitting Provider Midwife; Visit Provider Midwife
DX: O26.643 Intrahepatic cholestasis of pregnancy, third trimester (principal); K83.1 Obstruction of bile duct; Z37.0 Single live birth; O69.81X0 Labor and delivery complicated by cord around neck, without compression, not applicable or unspecified; O70.1 Second degree perineal laceration during delivery; Z3A.36 36 weeks gestation of pregnancy
CPT/HCPCS: 36415; 80307; 82948; 85027; 86850; 86900; 86901; J1885; J2300